=== PATIENT | female | born 1995 | race Hispanic/Latino ===

== ENCOUNTER 2018-11-15 06:02 | Outpatient (CLI) | payer MEDICAID ==
[2018-11-15] MEDS ORDERED: LACTATED RINGERS 500 ML IV ONE ×2 (06:12→08:00)
[2018-11-15] MEDS ORDERED: LACTATED RINGERS 1,000 ML ONE (06:46)
[2018-11-15] MEDS ORDERED: BRETHINE ONE (07:14)
[2018-11-15 07:19] LABS: Bacteria,Urine 1+ /HPF (Negative); Bilirubin,Urine NEG (Negative); Blood,Urine NEG (Negative); Color,Urine Yellow (Yellow); Mucus,Urine FEW /HPF; Protein,Urine <15 mg/dL mg/dL (Negative); Urobilinogen,Urine < 2.0 mg/dL (<2.0)
[2018-11-15 08:27] VITALS: BP 91/54
[2018-11-15] MEDS ORDERED: ZOFRAN IV ONE (08:30)
[2018-11-15] MEDS ORDERED: BRETHINE SUB-Q SCH (08:30)
== END 2018-11-15 10:03 | disposition home or self-care (01) ==
LOC: TRG 06:02
PROVIDERS: ATTEND Obstetrics & Gynecology
DX: O62.9 Abnormality of forces of labor, unspecified (principal); Z3A.33 33 weeks gestation of pregnancy
CPT/HCPCS: 59025; 81001; 96365; 96372; J2405; J3105; J7120; 96360; 96361; 96374; 96375

== ENCOUNTER 2018-12-17 02:24 | Outpatient (CLI) | payer MEDICAID ==
[2018-12-17 03:53] VITALS: BP 102/60
[2018-12-17] MEDS ORDERED: LACTATED RINGERS 1,000 ML IV ONE (03:54)
--- NOTE | 2018-12-17 06:43 | Event Note ---
Date: 12/17/18 Triage Note 12/17/18: 23 year old presents to L&D triage to rule out labor at 38 weeks, 3 days gestation. Patient reports active movement. Pt. denies LOF or vaginal bleeding. NST reactive. Contractions every 2-3 minutes. Cervix closed and thick. Patient was hydrated and observed. No cervical change. Contractions did not totally resolve and offered to keep patient longer and to recheck in several hours. Patient refused to stay, stating she wanted to go home. Patient not in active labor. Patient was discharged home with discussion of labor signs and warning signs. Follow up at [facility] as scheduled.
== END 2018-12-17 04:17 | disposition home or self-care (01) ==
LOC: TRG 02:24
PROVIDERS: ATTEND Obstetrics & Gynecology
DX: O47.1 False labor at or after 37 completed weeks of gestation (principal); Z3A.38 38 weeks gestation of pregnancy
CPT/HCPCS: 59025

== ENCOUNTER 2019-02-02 15:40 | Inpatient (IN) | payer MEDICAID ==
[2019-02-02] MEDS ORDERED: TYLENOL PO ONE (15:51)
[2019-02-02] MEDS ORDERED: GENTAMICIN 120 MG in NACL 0.9% 100 ML IV STA (16:23)
[2019-02-02] MEDS ORDERED: CLEOCIN 900 MG/50 mL 900 MG/50 ML BAG IV ONE (16:23)
[2019-02-02] MEDS ORDERED: NACL 0.9% 1000 ML 2,000 ML IV ONE (16:23)
[2019-02-02] MEDS ORDERED: NACL 0.9% 1000 ML 1,000 ML IV ONE (16:23)
--- NOTE | 2019-02-02 16:25 | Emergency Department Report ---
ED General Adult HPI - General Chief complaint: Fever Stated complaint: FEVER Time Seen by Provider: 02/02/19 16:15 Source: patient, RN notes reviewed, old records reviewed Mode of arrival: Ambulatory Limitations: No Limitations - History of Present Illness Initial comments: [employer] physician: Dr Duncan This is a 23-year-old female, not known to this provider previously. She does not have a primary care doctor, and she follows with the aforementioned obstetrics group. Patient had a section this hospital approximately one month ago. Pres ents to the emergency room today with complaint of fever, temperature max 102.5 at home, alternating chills, and hot flashes. Has no headache, neck pain, chest pain, upper abdominal pain, irritative urinary symptoms. Endorses sensation of incomplete voiding. No saddle anesthesia. No fecal incontinence. Also has nontraumatic lower back pain, which does not radiate anywhere. -: Gradual, hour(s) Location: back Radiation: non-radiation Severity scale (0 -10): 7 Quality: aching Consistency: intermittent Improves with: rest Worsens with: movement - Related Data Previous Rx's Medication Instructions Recorded Last Taken Type Ibuprofen [Motrin] 800 mg PO Q8HR PRN #30 tablet 01/03/19 Unknown Rx oxyCODONE /ACETAMINOPHEN [Percocet 1 tab PO Q4HR #20 tab 01/03/19 Unknown Rx 5/325] Allergies Allergy/AdvReac Type Severity Reaction Status Date / Time Sulfa (Sulfonamide Allergy Intermediate Hives Verified 02/02/19 15:42 Antibiotics) ED Review of Systems ROS: Stated complaint: FEVER Other details as noted in HPI Constitutional: chills, fever, malaise, weakness Eyes: denies: eye discharge ENT: denies: epistaxis Respiratory: denies: cough Cardiovascular: denies: chest pain Gastrointestinal: denies: nausea, vomiting, diarrhea Genitourinary: denies: dysuria, frequency Musculoskeletal: back pain, arthralgia, myalgia Skin: denies: lesions Neurological: weakness. denies: headache Psychiatric: anxiety Hematological/Lymphatic: denies: easy bleeding ED Past Medical Hx - Past Medical History Hx Hypertension: No Hx Congestive Heart Failure: No Hx Diabetes: No Hx Deep Vein Thrombosis: No Hx Renal Disease: No Hx Sickle Cell Disease: No Hx Seizures: No Hx Asthma: No Hx COPD: No Hx HIV: No - Social History Smoking Status: Never Smoker Substance Use Type: None - Medications Home Medications: Home Medications Medication Instructions Recorded Confirmed Last Taken Type Ibuprofen [Motrin] 800 mg PO Q8HR PRN #30 tablet 01/03/19 Unknown Rx oxyCODONE /ACETAMINOPHEN [Percocet 1 tab PO Q4HR #20 tab 01/03/19 Unknown Rx 5/325] ED Physical Exam - General Limitations: No Limitations, Other (chaperoned by ER wedger Eduarda) General appearance: alert, in no apparent distress - Head Head exam: Present: atraumatic, normocephalic - Eye Eye exam: Present: normal appearance, EOMI. Absent: nystagmus - ENT ENT exam: Present: normal exam, normal orophraynx, mucous membranes moist, normal external ear exam - Neck Neck exam: Present: normal inspection, full ROM. Absent: tenderness, meningismus - Respiratory Respiratory exam: Present: normal lung sounds bilaterally. Absent: respiratory distress - Cardiovascular Cardiovascular Exam: Present: normal rhythm, tachycardia, normal heart sounds. Absent: systolic murmur, diastolic murmur, rubs, gallop - GI/Abdominal GI/Abdominal exam: Present: soft, tenderness, other ( section scar with no redness, pus or streaking. Minimal lower abdominal tenderness without rebound, guarding or peritoneal sign.). Absent: distended, guarding, rebound, rigid, pulsatile mass - Extremities Exam Extremities exam: Present: normal inspection, full ROM, other (2+ pulses noted in the bilateral upper, lower extremities. Compartments soft. No long bony tenderness. The pelvis is stable.). Absent: pedal edema, joint swelling, calf tenderness - Back Exam Back exam: Present: normal inspection, full ROM. Absent: tenderness, CVA tenderness (R), CVA tenderness (L), paraspinal tenderness, vertebral tenderness - Neurological Exam Neurological exam: Present: alert, normal gait, other (Extraocular movements intact. Tongue midline. No facial droop. Facial sensation intact to light touch in the V1, V2, V3 distribution bilaterally. 5 and 5 strength in 4 extremities.. Sensation is intact to light touch in 4 extremities.). Absent: motor sensory deficit - Psychiatric Psychiatric exam: Present: normal affect, normal mood - Skin Skin exam: Present: warm, dry, intact, normal color. Absent: rash ED Course Vital Signs 02/02/19 02/02/19 02/02/19 15:42 16:48 17:00 Temperature 100.1 F H Pulse Rate 137 H 80 Respiratory 18 14 Rate Blood Pressure Blood Pressure 118/77 [Left] O2 Sat by Pulse 96 98 99 Oximetry 02/02/19 02/02/19 02/02/19 17:16 17:30 18:20 Temperature Pulse Rate 76 86 Respiratory 18 13 13 Rate Blood Pressure Blood Pressure [Left] O2 Sat by Pulse 99 99 Oximetry 02/02/19 02/02/19 02/02/19 18:30 18:45 18:46 Temperature 98.8 F Pulse Rate 65 65 Respiratory 16 16 20 Rate Blood Pressure 93/43 102/47 Blood Pressure [Left] O2 Sat by Pulse 100 100 100 Oximetry 02/02/19 02/02/19 02/02/19 19:00 19:16 19:30 Temperature Pulse Rate 63 65 67 Respiratory 18 11 L 12 Rate Blood Pressure 102/47 97/56 95/56 Blood Pressure [Left] O2 Sat by Pulse 100 100 100 Oximetry - Reevaluation(s) Reevaluation #1: 02/02/19 17:47 Differential diagnosis, including but not limited to: Bacteremia, viremia, postoperative infection Assessment and plan: 23-year-old female with complaint of fever, chills, my algias, tachycardic initially, leukocytosis of 15,000, suggestive of invasive bacterial infection. Tachycardia is improved. Appropriate broad-spectrum antibiotic therapy has been ordered. CT scan of the abdomen and pelvis is ordered. X-ray of the chest is clear and unremarkable. There is no midline spinal tenderness, there is no lower extremity weakness or numbness, epidural abscess, epidural compression is unlikely. Discussed with gynecology on-call, Dr. Toledo, covering for patient's private therapy director, and his group will admit the patient. Reevaluation #2: 02/02/19 17:50 Discussed plan of care for admission, administration of antibiotics, and acquisition of CT scan with patient and family member. Instructed patient to not breast feed for the next 24 hours. She verbalizes understanding. Patient and family amenable to hospitalization. Reevaluation #3: 02/02/19 18:46 CT scan of the abdomen and pelvis suggests no discrete abscess. Nonspecific endometrial findings noted. We will defer to gynecology to further evaluate. ED Medical Decision Making - Lab Data Result diagrams: 02/02/19 15:55 02/02/19 15:55 Vital Signs 02/02/19 15:42 Temperature 100.1 F H Pulse Rate 137 H Respiratory 18 Rate Blood Pressure 118/77 [Left] O2 Sat by Pulse 96 Oximetry Lab Results 02/02/19 02/02/19 02/02/19 Range/Units 15:55 15:55 15:55 WBC 15.3 H (4.5-11.0) K/mm3 RBC 4.09 (3.65-5.03) M/mm3 Hgb 11.6 (10.1-14.3) gm/dl Hct 34.1 (30.3-42.9) % MCV 84 (79-97) fl MCH 28 (28-32) pg MCHC 34 (30-34) % RDW 13.6 (13.2-15.2) % Plt Count 396 (140-440) K/mm3 Lymph % (Auto) 5.6 L (13.4-35.0) % [place] % (Auto) 9.3 H (0.0-7.3) % Eos % (Auto) 0.0 (0.0-4.3) % Baso % (Auto) 0.3 (0.0-1.8) % Lymph # 0.9 L (1.2-5.4) K/mm3 [place] # 1.4 H (0.0-0.8) K/mm3 Eos # 0.0 (0.0-0.4) K/mm3 Baso # 0.0 (0.0-0.1) K/mm3 Seg Neutrophils % 84.8 H (40.0-70.0) % Seg Neutrophils # 13.0 H (1.8-7.7) K/mm3 PT 13.5 (12.2-14.9) Sec. INR 1.06 (0.87-1.13) VBG pH (7.320-7.420) Sodium 140 (137-145) mmol/L Potassium 3.5 L (3.6-5.0) mmol/L Chloride 103.5 (98-107) mmol/L Carbon Dioxide 21 L (22-30) mmol/L Anion Gap 19 mmol/L BUN 18 H (7-17) mg/dL Creatinine 0.8 (0.7-1.2) mg/dL Estimated GFR > 60 ml/min BUN/Creatinine Ratio 23 % Glucose 107 H (65-100) mg/dL Lactic Acid (0.7-2.0) mmol/L Calcium 9.9 (8.4-10.2) mg/dL Magnesium (1.7-2.3) mg/dL Total Bilirubin 0.30 (0.1-1.2) mg/dL AST 19 (5-40) units/L ALT 17 (7-56) units/L Alkaline Phosphatase 94 (35-129) units/L Total Creatine Kinase (30-135) units/L Total Protein 7.5 (6.3-8.2) g/dL Albumin 4.2 (3.9-5) g/dL Albumin/Globulin Ratio 1.3 % Urine Color (Yellow) Urine Turbidity (Clear) Urine pH (5.0-7.0) Ur Specific [place] (1.003-1.030) Urine Protein (Negative) mg/dL Urine Glucose (UA) (Negative) mg/dL Urine Ketones (Negative) mg/dL Urine Blood (Negative) Urine Nitrite (Negative) Urine Bilirubin (Negative) Urine Urobilinogen (<2.0) mg/dL Ur Leukocyte Esterase (Negative) Urine WBC (Auto) (0.0-6.0) /HPF Urine RBC (Auto) (0.0-6.0) /HPF U Epithel Cells (Auto) (0-13.0) /HPF Urine Mucus /HPF 02/02/19 02/02/19 02/02/19 Range/Units 15:55 15:55 16:08 WBC (4.5-11.0) K/mm3 RBC (3.65-5.03) M/mm3 Hgb (10.1-14.3) gm/dl Hct (30.3-42.9) % MCV (79-97) fl MCH (28-32) pg MCHC (30-34) % RDW (13.2-15.2) % Plt Count (140-440) K/mm3 Lymph % (Auto) (13.4-35.0) % [place] % (Auto) (0.0-7.3) % Eos % (Auto) (0.0-4.3) % Baso % (Auto) (0.0-1.8) % Lymph # (1.2-5.4) K/mm3 [place] # (0.0-0.8) K/mm3 Eos # (0.0-0.4) K/mm3 Baso # (0.0-0.1) K/mm3 Seg Neutrophils % (40.0-70.0) % Seg Neutrophils # (1.8-7.7) K/mm3 PT (12.2-14.9) Sec. INR (0.87-1.13) VBG pH 7.430 H (7.320-7.420) Sodium (137-145) mmol/L Potassium (3.6-5.0) mmol/L Chloride (98-107) mmol/L Carbon Dioxide (22-30) mmol/L Anion Gap mmol/L BUN (7-17) mg/dL Creatinine (0.7-1.2) mg/dL Estimated GFR ml/min BUN/Creatinine Ratio % Glucose (65-100) mg/dL Lactic Acid 1.00 (0.7-2.0) mmol/L Calcium (8.4-10.2) mg/dL Magnesium (1.7-2.3) mg/dL Total Bilirubin (0.1-1.2) mg/dL AST (5-40) units/L ALT (7-56) units/L Alkaline Phosphatase (35-129) units/L Total Creatine Kinase (30-135) units/L Total Protein (6.3-8.2) g/dL Albumin (3.9-5) g/dL Albumin/Globulin Ratio % Urine Color Yellow (Yellow) Urine Turbidity Cloudy (Clear) Urine pH 6.0 (5.0-7.0) Ur Specific [place] 1.014 (1.003-1.030) Urine Protein 30 mg/dl (Negative) mg/dL Urine Glucose (UA) Neg (Negative) mg/dL Urine Ketones Neg (Negative) mg/dL Urine Blood Sm (Negative) Urine Nitrite Neg (Negative) Urine Bilirubin Neg (Negative) Urine Urobilinogen < 2.0 (<2.0) mg/dL Ur Leukocyte Esterase Lg (Negative) Urine WBC (Auto) > 182.0 H (0.0-6.0) /HPF Urine RBC (Auto) 15.0 (0.0-6.0) /HPF U Epithel Cells (Auto) 3.0 (0-13.0) /HPF Urine Mucus Few /HPF 02/02/19 Range/Units 16:20 WBC (4.5-11.0) K/mm3 RBC (3.65-5.03) M/mm3 Hgb (10.1-14.3) gm/dl Hct (30.3-42.9) % MCV (79-97) fl MCH (28-32) pg MCHC (30-34) % RDW (13.2-15.2) % Plt Count (140-440) K/mm3 Lymph % (Auto) (13.4-35.0) % [place] % (Auto) (0.0-7.3) % Eos % (Auto) (0.0-4.3) % Baso % (Auto) (0.0-1.8) % Lymph # (1.2-5.4) K/mm3 [place] # (0.0-0.8) K/mm3 Eos # (0.0-0.4) K/mm3 Baso # (0.0-0.1) K/mm3 Seg Neutrophils % (40.0-70.0) % Seg Neutrophils # (1.8-7.7) K/mm3 PT (12.2-14.9) Sec. INR (0.87-1.13) VBG pH (7.320-7.420) Sodium (137-145) mmol/L Potassium (3.6-5.0) mmol/L Chloride (98-107) mmol/L Carbon Dioxide (22-30) mmol/L Anion Gap mmol/L BUN (7-17) mg/dL Creatinine (0.7-1.2) mg/dL Estimated GFR ml/min BUN/Creatinine Ratio % Glucose (65-100) mg/dL Lactic Acid (0.7-2.0) mmol/L Calcium (8.4-10.2) mg/dL Magnesium 1.80 (1.7-2.3) mg/dL Total Bilirubin (0.1-1.2) mg/dL AST (5-40) units/L ALT (7-56) units/L Alkaline Phosphatase (35-129) units/L Total Creatine Kinase 39 (30-135) units/L Total Protein (6.3-8.2) g/dL Albumin (3.9-5) g/dL Albumin/Globulin Ratio % Urine Color (Yellow) Urine Turbidity (Clear) Urine pH (5.0-7.0) Ur Specific [place] (1.003-1.030) Urine Protein (Negative) mg/dL Urine Glucose (UA) (Negative) mg/dL Urine Ketones (Negative) mg/dL Urine Blood (Negative) Urine Nitrite (Negative) Urine Bilirubin (Negative) Urine Urobilinogen (<2.0) mg/dL Ur Leukocyte Esterase (Negative) Urine WBC (Auto) (0.0-6.0) /HPF Urine RBC (Auto) (0.0-6.0) /HPF U Epithel Cells (Auto) (0-13.0) /HPF Urine Mucus /HPF - EKG Data -: EKG Interpreted by Me EKG shows normal: sinus rhythm Rate: normal - EKG Data When compared to previous EKG there are: previous EKG unavailable 02/02/19 17:48 This is a normal sinus rhythm, 90 bpm, left axis deviation, left anterior fascicular block, atrial enlargement, motion artifact, rate 90 bpm, abnormal EKG, no endorsement of chest pain, this EKG is not consistent with ST elevation myocardial infarction. - Radiology Data Radiology results: report reviewed, image reviewed X-ray of the chest is negative for acute disease. CT scan of the abdomen pelvis interpretation is pending at this time. Critical care attestation.: If time is entered above; I have spent that time in minutes in the direct care of this critically ill patient, excluding procedure time. ED Disposition Clinical Impression: Postoperative fever Sepsis Qualifiers: Sepsis type: sepsis due to unspecified organism Qualified Code(s): A41.9 - Sepsis, unspecified organism Disposition: OP ADMIT IP TO THIS HOSP Is pt being admited?: Yes Condition: Serious
[2019-02-02 16:26] LABS: Basophils % (Auto) 0.3 % (0.0-1.8); Hematocrit 34.1 % (30.3-42.9); Hemoglobin 11.6 gm/dl (10.1-14.3); Lymphocytes # (Auto) 0.9 K/mm3 (1.2-5.4); Lymphocytes % (Auto) 5.6 % (13.4-35.0); Mean Corpuscular HGB Conc 34 % (30-34); Mean Corpuscular Volume 84 fl (79-97); Monocytes # (Auto) 1.4 K/mm3 (0.0-0.8); Monocytes % (Auto) 9.3 % (0.0-7.3); Platelet Count 396 K/mm3 (140-440); Red Blood Count 4.09 M/mm3 (3.65-5.03); Red Cell Distribution Width 13.6 % (13.2-15.2)
[2019-02-02 16:36] LABS: INR 1.06 (0.87-1.13)
[2019-02-02 16:37] LABS: Alanine Aminotransferase 17 units/L (7-56); Albumin 4.2 g/dL (3.9-5); BUN/Creatinine Ratio 23; Blood Urea Nitrogen 18 mg/dL (7-17); Calcium 9.9 mg/dL (8.4-10.2); Hemolysis Index 0
--- NOTE | 2019-02-02 16:50 | XRay Report ---
PROCEDURE: XR CHEST 1V AP TECHNIQUE: Chest radiograph single view. HISTORY: possible Sepsis COMPARISONS: None . FINDINGS: Heart: Normal. Mediastinum/Vessels: Normal. Lungs/Pleural space: Normal. Bony thorax: No acute osseous abnormality. Life support devices: None. IMPRESSION: No acute cardiopulmonary abnormality. This document is electronically signed by Oliver Rangel MD., February 02 2019 04:48:41 PM ET
[2019-02-02] MEDS: NACL 0.9% 500 ML 500 ML IV ONE ×2 (16:58→20:16)
[2019-02-02] MEDS ORDERED: GENTAMICIN/NS 120MG/100ML 120 MG/100 ML BAG IV ONE (17:00)
[2019-02-02] MEDS ORDERED: AMPICILLIN/NS 2 GM/100 ML 2 GM/100 ML BAG IV ONE (17:00)
[2019-02-02 17:23] LABS: Bilirubin,Urine NEG (Negative); Blood,Urine SM (Negative); Color,Urine Yellow (Yellow); Mucus,Urine FEW /HPF; Urobilinogen,Urine < 2.0 mg/dL (<2.0)
[2019-02-02 17:24] LABS: WBC,Urine > 182.0 /HPF (0.0-6.0)
--- NOTE | 2019-02-02 18:33 | Cat Scan Report ---
PROCEDURE: CT ABDOMEN PELVIS W CON TECHNIQUE: Computerized axial tomography of the abdomen and pelvis was performed after the IV inject ion of iodinated nonionic contrast. CT DOSE LENGTH PRODUCT: 889.1 mGycm HISTORY: post op sepsis, ? Retained POC COMPARISONS: None . FINDINGS: No acute lung base finding. No acute fracture. Normal-appearing liver, adrenals, pancreas, and spleen . Intact normal caliber abdominal aorta and IVC. Gallbladder is contracted. Contains a single calcified small stone. Slight gallbladder wall thickenin g may be secondary to contracted state. No pericholecystic fluid. Normal-appearing kidneys. Nonspecific slight bilateral hydronephrosis may be residual from since there is no evidence of ureteral calculus. The distal ureters are partly obscured by adjacent s tructures. Intact abdominal wall without evidence of hernia. Slight fat stranding transversely across the pelvic anterior abdominal wall may be postoperative change. No abnormal fluid collection in the abdominal w all. No retroperitoneal adenopathy. No evidence of mesenteric mass. Normal-appearing stomach and duodenum. No small bowel distention in the abdomen and pelvis. Nonspecific slight pelvic free fluid may be reactive and/or postoperative. Normal-appearing urinary bladder, adnexa, and rectum. Nonspecific slight fluid noted in the endometri al cavity. No evidence of mass or abnormal IV contrast enhancement in the region of the uterine cavit y to suggest CT evidence of retained products of conception. No evidence of uterine mass. No abnormal well-defined fluid collection with air bubbles to suggest abscess. Normal-appearing rectu m and sigmoid colon. Normal-appearing cecum, terminal ileum, and appendix. IMPRESSION: Nonspecific slight free fluid in the endometrial cavity may be clearly or hemorrhagic. Differential i ncludes endometritis. No mass or enhancing abnormality in the uterine cavity to suggest CT evidence o f retained products of conception Slight pelvic free fluid may be reactive and/or postoperative Single small calcified gallstone in contracted gallbladder lumen Slight bilateral hydronephrosis may be residual from since there is no evidence of ureteral calculus This document is electronically signed by Gilbert Arreguin MD., February 02 2019 06:31:40 PM ET
--- NOTE | 2019-02-02 20:32 | History and Physical Report ---
History of Present Illness Date of examination: 02/02/19 Date of admission: 02/02/19 17:49 Chief complaint: Fever and chills History of present illness: 23 year old female presented to hospital today with complaint of fever and chills. Patient is 1 month post-op; had primary low transverse section on 01/02/19 and had uneventful stay other than anemia for which she received oral iron supplementation. Patient states she developed a fever of 101 degrees today at around 11:00 AM. She states she also began experiencing chills, malaise and extreme fatigue at that time. She reports body aches. Patient denies any sick contacts. She denies exposure to flu. She reports a recent history of syphilis (latent) which was treated late last year. She denies skin rash, cough, shortness of breath, chest pain, wheezing, foul smelling vaginal discharge, heavy vaginal bleeding, dysuria, urinary frequency, abdominal pain, leg pain, dizziness, or headache. She reports nausea but no vomiting this morning for which she took a Zofran pill; states nausea has now resolved. Alternating diarrhea and constipation for the past few weeks but normal BM this morning. Reports feeling of suprapubic pressure and feeling of constantly needing to void, lower back pain, and left flank pain for past few days. She denies incisional pain. Patient denies depression. She states she is not taking any regular medications at home. She reports a sulfa allergy. Past History Past Medical History: other (recently treated for latent syphilis (states she was treated 07/2018)) Past Surgical History: section (one month ago), other (wisdom teeth extraction) CV RN History: syphilis. denies: abnormal PAP smear, chlamydia, gonorrhea, hepatitis B, hepatitis C, herpes, HIV Family/Genetic History: none Social history: lives with family, full code. denies: smoking, alcohol abuse, prescription drug abuse, IV drug use Medications and Allergies Allergies Allergy/AdvReac Type Severity Reaction Status Date / Time Sulfa (Sulfonamide Allergy Intermediate Hives Verified 02/02/19 15:42 Antibiotics) Home Medications Medication Instructions Recorded Confirmed Last Taken Type Ibuprofen [Motrin] 800 mg PO Q8HR PRN #30 tablet 01/03/19 Unknown Rx oxyCODONE /ACETAMINOPHEN [Percocet 1 tab PO Q4HR #20 tab 01/03/19 Unknown Rx 5/325] Review of Systems Constitutional: fever, chills, fatigue, other (body aches), no weakness, no lethargy Ears, nose, mouth and throat: no ear pain, no nasal discharge, no sore throat Cardiovascular: other (patient reports intermittent feeling that her heart is pounding), no chest pain, no syncope, no lightheadedness, no shortness of breath, no phlebitis Respiratory: no cough, no shortness of breath, no congestion, no wheezing Gastrointestinal: nausea, diarrhea, constipation, no abdominal pain, no vomiting Genitourinary: other (reports scant light brown lochia), no pelvic pain Musculoskeletal: myalgias, other (reports body aches) Integumentary: no rash, no pruritis Neurological: no syncope, no headaches Psychiatric: no anxiety, no depression Endocrine: fatigue, no palpatations Allergic/Immunologic: no wheezing - Vital Signs Vital signs: Vital Signs Temp Pulse Resp BP Pulse Ox 100.1 F H 137 H 18 118/77 96 02/02/19 15:42 02/02/19 15:42 02/02/19 15:42 02/02/19 15:42 02/02/19 15:42 Temp Pulse Resp BP Pulse Ox 98.8 F 67 12 95/56 100 02/02/19 18:45 02/02/19 19:30 02/02/19 19:30 02/02/19 19:30 02/02/19 19:30 Urine showed 182 WBC per HPF. CXR negative. CT of abdomen and pelvis showed small amount of free fluid in endometrial cavity and single calcified small stone in gallbladder. - Physical Exam Cardiovascular: Regular rate, Normal S1, Normal S2, Other (murmur heard) Lungs: Positive: Clear to auscultation Abdomen: Positive: normal appearance, soft, tenderness (tenderness between umbi licus and S.P. upon palpation; no tenderness directly on incision; + left CVAT), normal bowel sounds. Negative: distention, guarding Uterus: Negative: tender Results Result Diagrams: 02/02/19 15:55 02/02/19 15:55 Abnormal lab results 02/02/19 02/02/19 02/02/19 Range/Units 15:55 15:55 15:55 WBC 15.3 H (4.5-11.0) K/mm3 Lymph % (Auto) 5.6 L (13.4-35.0) % [place] % (Auto) 9.3 H (0.0-7.3) % Lymph # 0.9 L (1.2-5.4) K/mm3 [place] # 1.4 H (0.0-0.8) K/mm3 Seg Neutrophils % 84.8 H (40.0-70.0) % Seg Neutrophils # 13.0 H (1.8-7.7) K/mm3 VBG pH 7.430 H (7.320-7.420) Potassium 3.5 L (3.6-5.0) mmol/L Carbon Dioxide 21 L (22-30) mmol/L BUN 18 H (7-17) mg/dL Glucose 107 H (65-100) mg/dL Lactic Acid (0.7-2.0) mmol/L Urine WBC (Auto) (0.0-6.0) /HPF 02/02/19 02/02/19 Range/Units 16:08 19:24 WBC (4.5-11.0) K/mm3 Lymph % (Auto) (13.4-35.0) % [place] % (Auto) (0.0-7.3) % Lymph # (1.2-5.4) K/mm3 [place] # (0.0-0.8) K/mm3 Seg Neutrophils % (40.0-70.0) % Seg Neutrophils # (1.8-7.7) K/mm3 VBG pH (7.320-7.420) Potassium (3.6-5.0) mmol/L Carbon Dioxide (22-30) mmol/L BUN (7-17) mg/dL Glucose (65-100) mg/dL Lactic Acid 0.60 L (0.7-2.0) mmol/L Urine WBC (Auto) > 182.0 H (0.0-6.0) /HPF All other labs normal. Assessment and Plan A: Fever and chills 1 month post LTCS. Leukocytosis. Probable UTI/left kidney infection. endometritis. Recent latent syphilis, treated. Sulfa allergy. Heart murmur. P: Admit. Blood cultures, urine culture. IV hydration. IV antibiotics (Gentamicin, Ampicillin, and Clindamycin); Dr. Seth orders to continue triple antibiotics until seen by ID. Infectious disease consult (consult put in and patient's nurse and charge nurse informed to notify ID MD of consult). Urology consult and cardiology consult (consults put in and patient's nurse and charge nurse informed to notify urology and cardiology of MD consult). Repeat CBC and CMP tomorrow. Vital sign monitoring. Consulted Dr. Seth regarding this patient and informed him of patient's symptoms, results of labs, results of CXR and abdominal/pelvic CT, patient's vital signs, and interventions taken/ordered. Dr. Seth states no pelvic US needed; he states to obtain ID, urology, and cardiology consults and to continue patient on Ampicillin, Gentamicin, and Clindamycin IV. Patient and nurse and charge nurse notified of Dr. Seth's orders. RN and charge nurse state they will notify ID, cardiology, and urology of consults.
[2019-02-02] MEDS ORDERED: LACTATED RINGERS 1,000 ML IV SCH (22:00)
[2019-02-03] MEDS: AMPICILLIN/NS 2 GM/100 ML 2 GM/100 ML BAG IV SCH ×3 (00:38→13:16)
[2019-02-03] MEDS ORDERED: TYLENOL PO ONE (01:10)
[2019-02-03] MEDS: CLEOCIN 900 MG/50 mL 900 MG/50 ML BAG IV SCH ×2 (02:11→11:03)
[2019-02-03] MEDS: GENTAMICIN/NS 80 MG/100 ML 100 ML IV SCH ×2 (04:04→12:28)
--- NOTE | 2019-02-03 04:06 | Progress Note ---
Assessment and Plan A: Fever and chills 1 month post LTCS. Leukocytosis. Probable UTI/left kidney infection. endometritis. Recent latent syphilis, treated. Sulfa allergy. Heart murmur. P: Admit. Blood cultures, urine culture. IV hydration. IV antibiotics (Gentamicin, Ampicillin, and Clindamycin); Dr. Seth orders to continue triple antibiotics until seen by ID. Infectious disease consult (consult put in and patient's nurse and charge nurse informed to notify ID MD of consult). Urology consult and cardiology consult (consults put in and patient's nurse and charge nurse informed to notify urology and cardiology of MD consult). Repeat CBC and CMP tomorrow. Vital sign monitoring. Patient is of small frame and was not in any distress; and vital signs not inconsistent with with such habitus. Work up, observation and rx for PUO will continue on the floor. ICU placement was considered but at this time patient's physical status suggests otherwise. - Patient Problems (1) PUO (pyrexia of unknown origin) Current Visit: Yes Status: Acute Subjective Date of service: 02/03/19 Principal diagnosis: Pyrexia of unknown origin. Interval history: 23 year old female presented to hospital today with complaint of fever and chills. Patient is 1 month post-op; had primary low transverse section on 01/02/19 and had uneventful stay other than anemia for which she received oral iron supplementation. Patient states she developed a fever of 101 degrees today at around 11:00 AM. She states she also began experiencing chills, malaise and extreme fatigue at that time. She reports body aches. Patient denies any sick contacts. She denies exposure to flu. She reports a recent history of syphilis (latent) which was treated late last year. She denies skin rash, cough, shortness of breath, chest pain, wheezing, foul smelling vaginal discharge, heavy vaginal bleeding, dysuria, urinary frequency, abdominal pain, leg pain, dizziness, or headache. She reports nausea but no vomiting this morning for which she took a Zofran pill; states nausea has now resolved. Alternating diarrhea and constipation for the past few weeks but normal BM this morning. Reports feeling of suprapubic pressure and feeling of constantly needing to void, lower back pain, and left flank pain for past few days. She denies incisional pain. Patient denies depression. She states she is not taking any regular medications at home. She reports a sulfa allergy. Saw patient this morning to reconcile reported vital signs and physical state of patient. Objective - Constitutional Vitals: Vital Signs - 12hr 02/02/19 02/02/19 02/02/19 16:48 17:00 17:16 Temperature Pulse Rate 80 76 Respiratory 14 18 Rate Blood Pressure O2 Sat by Pulse 98 99 99 Oximetry 02/02/19 02/02/19 02/02/19 17:30 18:20 18:30 Temperature Pulse Rate 86 65 Respiratory 13 13 16 Rate Blood Pressure 93/43 O2 Sat by Pulse 99 100 Oximetry 02/02/19 02/02/19 02/02/19 18:45 18:46 19:00 Temperature 98.8 F Pulse Rate 65 63 Respiratory 16 20 18 Rate Blood Pressure 102/47 102/47 O2 Sat by Pulse 100 100 100 Oximetry 02/02/19 02/02/19 02/02/19 19:16 19:30 21:25 Temperature Pulse Rate 65 67 Respiratory 11 L 12 Rate Blood Pressure 97/56 95/56 97/56 O2 Sat by Pulse 100 100 89 Oximetry 02/02/19 02/02/19 02/02/19 21:30 23:09 23:25 Temperature 99.7 F H 99.7 F H Pulse Rate 122 H 120 H Respiratory 30 H Rate Blood Pressure 97/56 106/54 O2 Sat by Pulse 97 98 Oximetry 02/03/19 02/03/19 02/03/19 00:10 02:06 02:08 Temperature 99.5 F 98.5 F Pulse Rate 97 H 80 82 Respiratory 24 24 Rate Blood Pressure 97/48 83/48 O2 Sat by Pulse 98 97 98 Oximetry General appearance: Present: no acute distress, well-nourished - EENT Eyes: PERRL ENT: hearing intact Ears: bilateral: normal - Neck Neck: supple, normal ROM - Respiratory Respiratory effort: normal Respiratory: bilateral: CTA - Breasts Breasts: deferred - Cardiovascular Rhythm: regular Extremities: no ischemia, pulses intact, pulses symmetrical, normal temperature, Full ROM - Gastrointestinal General gastrointestinal: Present: soft, non-tender, non-distended, normal bowel sounds Rectal Exam: deferred - Genitourinary Female genitourinary: deferred - Integumentary Integumentary: clear, warm, dry, normal turgor, no jaundice, no rash, no clammy, no pale - Musculoskeletal Musculoskeletal: 1, strength equal bilaterally - Psychiatric Psychiatric: appropriate mood/affect, intact judgment & insight, cooperative - Labs CBC & Chem 7: 02/02/19 15:55 02/02/19 15:55 Labs: Abnormal lab results 02/02/19 02/02/19 02/02/19 Range/Units 15:55 15:55 15:55 WBC 15.3 H (4.5-11.0) K/mm3 Lymph % (Auto) 5.6 L (13.4-35.0) % [place] % (Auto) 9.3 H (0.0-7.3) % Lymph # 0.9 L (1.2-5.4) K/mm3 [place] # 1.4 H (0.0-0.8) K/mm3 Seg Neutrophils % 84.8 H (40.0-70.0) % Seg Neutrophils # 13.0 H (1.8-7.7) K/mm3 VBG pH 7.430 H (7.320-7.420) Potassium 3.5 L (3.6-5.0) mmol/L Carbon Dioxide 21 L (22-30) mmol/L BUN 18 H (7-17) mg/dL Glucose 107 H (65-100) mg/dL Lactic Acid (0.7-2.0) mmol/L Urine WBC (Auto) (0.0-6.0) /HPF 02/02/19 02/02/19 Range/Units 16:08 19:24 WBC (4.5-11.0) K/mm3 Lymph % (Auto) (13.4-35.0) % [place] % (Auto) (0.0-7.3) % Lymph # (1.2-5.4) K/mm3 [place] # (0.0-0.8) K/mm3 Seg Neutrophils % (40.0-70.0) % Seg Neutrophils # (1.8-7.7) K/mm3 VBG pH (7.320-7.420) Potassium (3.6-5.0) mmol/L Carbon Dioxide (22-30) mmol/L BUN (7-17) mg/dL Glucose (65-100) mg/dL Lactic Acid 0.60 L (0.7-2.0) mmol/L Urine WBC (Auto) > 182.0 H (0.0-6.0) /HPF - Imaging and cardiology Chest x-ray: report reviewed CT scan - abdomen: report reviewed Medications & Allergies - Medications Allergies/Adverse Reactions: Allergies Sulfa (Sulfonamide Antibiotics) Allergy (Intermediate, Verified 02/02/19 15:42) Hives Home Medications: Home Medications Medication Instructions Recorded Confirmed Last Taken Type Ibuprofen [Motrin] 800 mg PO Q8HR PRN #30 tablet 01/03/19 Unknown Rx oxyCODONE /ACETAMINOPHEN [Percocet 1 tab PO Q4HR #20 tab 01/03/19 Unknown Rx 5/325] Active Medications: Generic Name Dose Route Start Last Admin Trade Name Freq PRN Reason Stop Dose Admin Lactated Ringer's 1,000 mls @ 125 mls/hr 02/02/19 23:00 Lactated Ringers IV DIRECT DEBBIE Clindamycin HCl 900 mg in 50 mls @ 100 mls/hr 02/03/19 01:00 02/03/19 02:11 Cleocin 900 Mg/50 Ml IV 100 mls/hr Q8H DEBBIE Administration Protocol Gentamicin Sulfate/Sodium Chloride 100 mls @ 200 mls/hr 02/03/19 04:00 Gentamicin/Ns 80 Mg/100 Ml IV Q8H DEBBIE Ampicillin Sodium 2 gm in 100 mls @ 100 mls/hr 02/03/19 00:00 02/03/19 00:38 Ampicillin/Ns 2 Gm/100 Ml IV 100 mls/hr Q6HR DEBBIE Administration Protocol
[2019-02-03] MEDS: LACTATED RINGERS 1,000 ML IV SCH ×2 (04:09→13:17)
[2019-02-03] MEDS: ZOFRAN IV PRN (08:44)
[2019-02-03] MEDS: NORCO 5/325 PO PRN ×3 (09:20→20:54)
[2019-02-03 09:41] LABS: Basophils % (Auto) 0.3 % (0.0-1.8); Eosinophils # (Auto) 0.1 K/mm3 (0.0-0.4); Eosinophils % (Auto) 0.3 % (0.0-4.3); Hematocrit 30.7 % (30.3-42.9); Hemoglobin 10.1 gm/dl (10.1-14.3); Mean Corpuscular HGB Conc 33 % (30-34); Mean Corpuscular Volume 86 fl (79-97); Platelet Count 312 K/mm3 (140-440); Red Blood Count 3.58 M/mm3 (3.65-5.03); Red Cell Distribution Width 13.5 % (13.2-15.2)
[2019-02-03 09:56] LABS: Alanine Aminotransferase 92 units/L (7-56); Albumin 3.4 g/dL (3.9-5); BUN/Creatinine Ratio 11; Blood Urea Nitrogen 9 mg/dL (7-17); Calcium 8.9 mg/dL (8.4-10.2); Hemolysis Index 5
--- NOTE | 2019-02-03 09:59 | Event Note ---
Date: 02/03/19 Saw patient briefly this morning. Left flank pain; awaiting urology, ID and cardiology consults. Receiving IV Ampicillin, Gentamicin, and Clindamycin. Ordered Aguirre for pain and IV Zofran for nausea. Patient was also seen and evaluated by this morning.
--- NOTE | 2019-02-03 11:39 | Consultation ---
History of Present Illness Consult date: 02/03/19 Requesting physician: ROBE BE Consult reason: other (Heart murmur) History of present illness: Ms. Moser is a 23 y/o female who is one month s/p transverse and a history of latent syphilis who presented to the [facility] on 02/02/2019 with fever and chills x24 hours. She also endorses lower back pain and some urinary frequency that she initially attributed to a UTI; however, she now reports those symptoms are resolved. She denies any sick contacts. She reports some nausea that is now resolved, but no vomiting, dizziness, shortness or breath or incision pain. Abdominal CT slight free fluid in the endometrial cavity and a single calcified gallstone in the gall bladder lumen. CXR showed no acute findings. She denies chest pain, but does endorse a "racing" heart on admission. Her documented hear t rate did reach the 120s overnight. Initial EKG unremarkable. Of note, patient states her blood pressures are normally "on the lower end of normal," reporting that her diastolic is typically in the 40s and 50s. We are consulted because of the fever and also because of a heart murmur that is new to the patient. Past History Past Medical History: other (latent syphilis) Past Surgical History: Social history: lives with family, full code. denies: smoking, alcohol abuse, prescription drug abuse, IV drug use Medications and Allergies Allergies Allergy/AdvReac Type Severity Reaction Status Date / Time Sulfa (Sulfonamide Allergy Intermediate Hives Verified 02/02/19 15:42 Antibiotics) Home Medications Medication Instructions Recorded Confirmed Last Taken Type Ibuprofen [Motrin] 800 mg PO Q8HR PRN #30 tablet 01/03/19 02/03/19 Unknown Rx oxyCODONE /ACETAMINOPHEN [Percocet 1 tab PO Q4HR #20 tab 01/03/19 02/03/19 Unknown Rx 5/325] Active Meds: Active Medications Acetaminophen/Hydrocodone Bitart ([place] 5/325) 1 each PO Q6H PRN PRN Reason: Pain, Moderate (4-6) Last Admin: 02/03/19 09:20 Dose: 1 each Documented by: Lactated Ringer's (Lactated Ringers) 1,000 mls @ 125 mls/hr IV DIRECT DEBBIE Last Admin: 02/03/19 04:09 Dose: 125 mls/hr Documented by: Clindamycin HCl (Cleocin 900 Mg/50 Ml) 900 mg in 50 mls @ 100 mls/hr IV Q8H DEBBIE; Protocol Last Admin: 02/03/19 11:03 Dose: 100 mls/hr Documented by: Gentamicin Sulfate/Sodium Chloride (Gentamicin/Ns 80 Mg/100 Ml) 100 mls @ 200 mls/hr IV Q8H DEBBIE Last Infusion: 02/03/19 04:31 Dose: Infused Documented by: Ampicillin Sodium (Ampicillin/Ns 2 Gm/100 Ml) 2 gm in 100 mls @ 100 mls/hr IV Q6HR DEBBIE; Protocol Last Admin: 02/03/19 07:36 Dose: 100 mls/hr Documented by: Ondansetron HCl (Zofran) 4 mg IV Q8H PRN PRN Reason: Nausea Last Admin: 02/03/19 08:44 Dose: 4 mg Documented by: Review of Systems All systems: negative Constitutional: fever, chills, other (lower back pain) Ears, nose, mouth and throat: deferred Genitourinary Female: flank pain Physical Examination Last Vital Signs Temp 100.7 F H 02/03/19 08:11 Pulse 105 H 02/03/19 08:11 Resp 38 H 02/03/19 08:11 BP 100/53 02/03/19 08:11 Pulse Ox 100 02/03/19 08:11 General appearance: no acute distress HEENT: Positive: PERRL Neck: Positive: neck supple Cardiac: Positive: Regular Rhythm, Audible Murmur Lungs: Positive: Normal Exam Neuro: Positive: Grossly Intact Abdomen: Positive: Soft Female genitourinary: deferred Skin: Positive: Clear Musculoskeletal: Normal Range of Motion Extremities: Present: normal Results 02/03/19 09:18 02/03/19 09:18 Cardiac Enzymes 02/02/19 02/03/19 Range/Units 15:55 09:18 AST 19 95 H (5-40) units/L Coagulation 02/02/19 Range/Units 15:55 PT 13.5 (12.2-14.9) Sec. INR 1.06 (0.87-1.13) CBC 02/02/19 02/03/19 Range/Units 15:55 09:18 WBC 15.3 H 16.8 H (4.5-11.0) K/mm3 RBC 4.09 3.58 L (3.65-5.03) M/mm3 Hgb 11.6 10.1 (10.1-14.3) gm/dl Hct 34.1 30.7 (30.3-42.9) % Plt Count 396 312 (140-440) K/mm3 Lymph # 0.9 L 1.0 L (1.2-5.4) K/mm3 [place] # 1.4 H 1.0 H (0.0-0.8) K/mm3 Eos # 0.0 0.1 (0.0-0.4) K/mm3 Baso # 0.0 0.0 (0.0-0.1) K/mm3 Comprehensive Metabolic Panel 02/02/19 02/03/19 Range/Units 15:55 09:18 Sodium 140 141 (137-145) mmol/L Potassium 3.5 L 3.5 L (3.6-5.0) mmol/L Chloride 103.5 107.1 H (98-107) mmol/L Carbon Dioxide 21 L 22 (22-30) mmol/L BUN 18 H 9 (7-17) mg/dL Creatinine 0.8 0.8 (0.7-1.2) mg/dL Glucose 107 H 122 H (65-100) mg/dL Calcium 9.9 8.9 (8.4-10.2) mg/dL AST 19 95 H (5-40) units/L ALT 17 92 H (7-56) units/L Alkaline Phosphatase 94 99 (35-129) units/L Total Protein 7.5 6.1 L (6.3-8.2) g/dL Albumin 4.2 3.4 L (3.9-5) g/dL - Imaging and Cardiology Echo: pending - EKG Interpretation EKG: sinus rhythm EKG interpretations - Telemetry EKG Rhythm: Sinus Rhythm Assessment and Plan Will obtain echocardiogram to evaluate for infectious process given fever and new-onset heart murmur. Will continue to monitor heart rate and blood pressure. Patient has been seen in conjunction with Dr. Valdez, who agrees with assessment and plan. - Patient Problems (1) Murmur, cardiac Current Visit: Yes Status: Acute (2) PUO (pyrexia of unknown origin) Current Visit: Yes Status: Acute (3) Postoperative fever Current Visit: Yes Status: Acute (4) Acquired syphilis Current Visit: No Status: Resolved (5) Anemia Current Visit: Yes Status: Acute (6) Anemia Current Visit: Yes Status: Acute
--- NOTE | 2019-02-03 15:58 | Consultation ---
History of Present Illness - Reason for Consult Consult date: 02/03/19 sepsis Requesting physician: ROBE BE - History of Present Illness 23 y/o female with recent C section on 01/02/2019 admitted on 02/02/2019 due to a week history of bilateral flank pain, left more than right associated with urinary hesitation and frequency. She reports she had a UTI when she was 14 y/o. Denies history of kidney stones. Reports 24 hour of fever associated with chills. She had an uneventful , only anemia for which she received oral iron supplementation. On admission, temp 100.1, HR 137, R18, BP 118/77. WBC 15.3. Hg 11.6. Plat 396. Creat 0.8. UA with 182 wbc, large LE. Blood cultures 02/02/2019 no growth today. Urine culture 02/02/[address] CXR negative. CT abdomen/pelvis shows slight bilateral hydronephrosis, small calcified gallstone and slight free fluid in the endometrial cavity. Review of Systems: General: + fever, +chills, no malaise Cutaneous: no rash, pruritus Head: no headaches or injury Eyes: no changes in vision, eye pain, double vision Ears: no ear pain, ear discharge, ringing or hearing loss Nose: no nose bleeding, stuffiness Mouth & throat: no bleeding gums, no horseness, no dental problems, or swollen glands Neck: no pain, node enlargement/lumps, tyroid enlargement or tenderness Respiratory: no cough, wheezing, sputum, hemoptysis, pleuritic chest pain Cardiovascular: no chest pain, leg edema, cyanosis, [place], orthopnea Musculoskeletal: no edema Gastrointestinal: +nausea, vomiting x 1, no hematemesis, diarrhea, constipation, melena, bright red blood in stools, fecal incontinence, jaundice Genitourinary/Reproductive: + frequent urination, dysuria, hematuria, incontinence +ga flank pain Neurogical: no seizures, no headaches, no weakness, no paresthesias, no loss of speech or vision; no memory loss, no vertigo, no tremors, no numbness Psychiatric: stable mood; no excessive anxiety, sadness or moodiness Past History Past Medical History: other (latent syphilis) Past Surgical History: Social history: lives with family, full code. denies: smoking, alcohol abuse, prescription drug abuse, IV drug use Medications and Allergies Allergies Allergy/AdvReac Type Severity Reaction Status Date / Time Sulfa (Sulfonamide Allergy Intermediate Hives Verified 02/02/19 15:42 Antibiotics) Home Medications Medication Instructions Recorded Confirmed Last Taken Type Ibuprofen [Motrin] 800 mg PO Q8HR PRN #30 tablet 01/03/19 02/03/19 Unknown Rx oxyCODONE /ACETAMINOPHEN [Percocet 1 tab PO Q4HR #20 tab 01/03/19 02/03/19 Unk nown Rx 5/325] Active Meds: Active Medications Acetaminophen/Hydrocodone Bitart ([place] 5/325) 1 each PO Q6H PRN PRN Reason: Pain, Moderate (4-6) Last Admin: 02/03/19 15:26 Dose: 1 each Documented by: Lactated Ringer's (Lactated Ringers) 1,000 mls @ 125 mls/hr IV DIRECT DEBBIE Last Admin: 02/03/19 13:17 Dose: 125 mls/hr Documented by: Clindamycin HCl (Cleocin 900 Mg/50 Ml) 900 mg in 50 mls @ 100 mls/hr IV Q8H DEBBIE; Protocol Last Admin: 02/03/19 11:03 Dose: 100 mls/hr Documented by: Gentamicin Sulfate/Sodium Chloride (Gentamicin/Ns 80 Mg/100 Ml) 100 mls @ 200 mls/hr IV Q8H DEBBIE Last Admin: 02/03/19 12:28 Dose: 200 mls/hr Documented by: Ampicillin Sodium (Ampicillin/Ns 2 Gm/100 Ml) 2 gm in 100 mls @ 100 mls/hr IV Q6HR DEBBIE; Protocol Last Admin: 02/03/19 13:16 Dose: 100 mls/hr Documented by: Ondansetron HCl (Zofran) 4 mg IV Q8H PRN PRN Reason: Nausea Last Admin: 02/03/19 08:44 Dose: 4 mg Documented by: Physical Examination - Physical Exam Narrative exam: General appearance: Alert in NAD Eyes: anicteric sclerae, moist conjunctivae; no lid-lag; PERRLA HENT: Atraumatic; oropharynx clear with moist mucous membranes and no mucosal ulcerations/no oral thrush; normal hard and soft palate. Normal external ears. Neck: Trachea midline; supple, no thyromegaly or lymphadenopathy Lungs: CTA, with normal respiratory effort and no intercostal retractions CV: RRR no murmur Abdomen: Soft, non-tender; no masses or hepatosplenomegaly + surgical scar well healed, +Left CV tenderness Extremities: no edema, cyanosis Skin: Normal temperature, turgor and texture; no rash, ulcers or subcutaneous nodules Psych: Appropriate affect, alert and oriented to person, place and time. Neuro: alert and oriented x 3. Moving all extermities - Constitutional Vitals: Vital Signs Temp Pulse Resp BP Pulse Ox 98.3 F 95 H 36 H 110/47 99 02/03/19 12:16 02/03/19 12:16 02/03/19 12:16 02/03/19 12:16 02/03/19 12:16 Temperature -Last 24 Hours Temperature 98.3 F Temperature 100.7 F Temperature 99.3 F Temperature 99.3 F Temperature 98.1 F Temperature 98.5 F Temperature 99.5 F Temperature 99.7 F Temperature 99.7 F Temperature 98.8 F Results - Labs CBC & Chem 7: 02/03/19 09:18 02/03/19 09:18 Labs: Abnormal lab results 02/02/19 02/02/19 02/02/19 Range/Units 15:55 15:55 15:55 WBC 15.3 H (4.5-11.0) K/mm3 RBC (3.65-5.03) M/mm3 Lymph % (Auto) 5.6 L (13.4-35.0) % Rich % (Auto) 9.3 H (0.0-7.3) % Lymph # 0.9 L (1.2-5.4) K/mm3 Rich # 1.4 H (0.0-0.8) K/mm3 Seg Neutrophils % 84.8 H (40.0-70.0) % Seg Neutrophils # 13.0 H (1.8-7.7) K/mm3 VBG pH 7.430 H (7.320-7.420) Potassium 3.5 L (3.6-5.0) mmol/L Chloride (98-107) mmol/L Carbon Dioxide 21 L (22-30) mmol/L BUN 18 H (7-17) mg/dL Glucose 107 H (65-100) mg/dL Lactic Acid (0.7-2.0) mmol/L AST (5-40) units/L ALT (7-56) units/L Total Protein (6.3-8.2) g/dL Albumin (3.9-5) g/dL Urine WBC (Auto) (0.0-6.0) /HPF 02/02/19 02/02/19 02/03/19 Range/Units 16:08 19:24 09:18 WBC 16.8 H (4.5-11.0) K/mm3 RBC 3.58 L (3.65-5.03) M/mm3 Lymph % (Auto) 6.0 L (13.4-35.0) % Rich % (Auto) (0.0-7.3) % Lymph # 1.0 L (1.2-5.4) K/mm3 Rich # 1.0 H (0.0-0.8) K/mm3 Seg Neutrophils % 87.4 H (40.0-70.0) % Seg Neutrophils # 14.7 H (1.8-7.7) K/mm3 VBG pH (7.320-7.420) Potassium (3.6-5.0) mmol/L Chloride (98-107) mmol/L Carbon Dioxide (22-30) mmol/L BUN (7-17) mg/dL Glucose (65-100) mg/dL Lactic Acid 0.60 L (0.7-2.0) mmol/L AST (5-40) units/L ALT (7-56) units/L Total Protein (6.3-8.2) g/dL Albumin (3.9-5) g/dL Urine WBC (Auto) > 182.0 H (0.0-6.0) /HPF 02/03/19 Range/Units 09:18 WBC (4.5-11.0) K/mm3 RBC (3.65-5.03) M/mm3 Lymph % (Auto) (13.4-35.0) % Rich % (Auto) (0.0-7.3) % Lymph # (1.2-5.4) K/mm3 Rich # (0.0-0.8) K/mm3 Seg Neutrophils % (40.0-70.0) % Seg Neutrophils # (1.8-7.7) K/mm3 VBG pH (7.320-7.420) Potassium 3.5 L (3.6-5.0) mmol/L Chloride 107.1 H (98-107) mmol/L Carbon Dioxide (22-30) mmol/L BUN (7-17) mg/dL Glucose 122 H (65-100) mg/dL Lactic Acid (0.7-2.0) mmol/L AST 95 H (5-40) units/L ALT 92 H (7-56) units/L Total Protein 6.1 L (6.3-8.2) g/dL Albumin 3.4 L (3.9-5) g/dL Urine WBC (Auto) (0.0-6.0) /HPF Assessment and Plan Cultures: Blood cultures 02/02/2019 no growth today. Urine culture 02/02/2019 100K GNRs. Assessment: 23 y/o female with recent on 01/02/2019 admitted on 02/02/2019 due to a week history of bilateral flank pain, left more than right associated with urinary hesitation and frequency: 1) Severe Sepsis: Present on admission, manifested by fever, tachycardia, leukocytosis. Etiology most likely UTI. 2) UTI: likely E coli UTI. She had a previous UTI when she was 14 y/o. UA with 182 wbc, large LE. Blood cultures 02/02/2019 no growth today. Urine culture 02/02/[address] abdomen/pelvis shows slight bilateral hydronephrosis, small calcified gallstone and slight free fluid in the endometrial cavity. 3) Elevated LFTs ? from sepsis Recommendations: - follow-up blood cultures, urine culture - stop clindamycin, gentamicin and ampicillin - start ceftriaxone 2 gm IV q day - renal US - monitor LFTs Will follow. Staci Briceno MD Infectious Diseases [facility] ([facility] M [phone]
--- NOTE | 2019-02-03 16:35 | Consultation ---
History of Present Illness Consult date: 02/03/19 Chief complaint: fever - History of present illness History of present illness: 23 yo F s/p csection 1 month ago presents with 1 day hx of fever up to 102.5. She also c/o lower abdominal pain radiating to both lower quadrants and left flank and mid back pain. She is having nausea and vomiting clear fluid from time to time. She has been having BMs. She c/o increased pressure when she urinates. She ate a regular diet today and states she did ok. She has never had pain or symptoms like this before. No upper abdominal pain. No association of pain with food. Past History Past Medical History: other (latent syphilis) Past Surgical History: Social history: lives with family, full code. denies: smoking, alcohol abuse, prescription drug abuse, IV drug use Family history: no significant family history Medications and Allergies Allergies Allergy/AdvReac Type Severity Reaction Status Date / Time Sulfa (Sulfonamide Allergy Intermediate Hives Verified 02/02/19 15:42 Antibiotics) Home Medications Medication Instructions Recorded Confirmed Last Taken Type Ibuprofen [Motrin] 800 mg PO Q8HR PRN #30 tablet 01/03/19 02/03/19 Unknown Rx oxyCODONE /ACETAMINOPHEN [Percocet 1 tab PO Q4HR #20 tab 01/03/19 02/03/19 Unknown Rx 5/325] Active Meds: Active Medications Acetaminophen/Hydrocodone Bitart ([place] 5/325) 1 each PO Q6H PRN PRN Reason: Pain, Moderate (4-6) Last Admin: 02/03/19 15:26 Dose: 1 each Documented by: Lactated Ringer's (Lactated Ringers) 1,000 mls @ 125 mls/hr IV DIRECT DEBBIE Last Admin: 02/03/19 13:17 Dose: 125 mls/hr Documented by: Ceftriaxone Sodium (Rocephin/Ns 2 Gm/100 Ml) 2 gm in 100 mls @ 200 mls/hr IV Q24H DEBBIE; Protocol Ondansetron HCl (Zofran) 4 mg IV Q8H PRN PRN Reason: Nausea Last Admin: 02/03/19 08:44 Dose: 4 mg Documented by: Review of Systems All systems: negative (10 pt ROS performed and negative except for that listed in HPI) Exam Vital Signs Temp Pulse Resp BP Pulse Ox 100.1 F H 137 H 18 118/77 96 02/02/19 15:42 02/02/19 15:42 02/02/19 15:42 02/02/19 15:42 02/02/19 15:42 Narrative exam: Gen: AAOx3. NAD ENT: no scleral icterus or conjunctival pallor CV: s1, S2+ resp; even and unlabored Abd: soft, ND, mild discomfort on palpation of bilateral lower quadrants and especially with palpation of suprapubic region. Well healed lower abdominal scar. No r/r/g Ext: no c/c/e Results - Labs 02/03/19 09:18 02/03/19 09:18 Abnormal lab results 02/02/19 02/02/19 02/02/19 Range/Units 15:55 15:55 16:08 WBC (4.5-11.0) K/mm3 RBC (3.65-5.03) M/mm3 Lymph % (Auto) (13.4-35.0) % Lymph # (1.2-5.4) K/mm3 Hughes # (0.0-0.8) K/mm3 Seg Neutrophils % (40.0-70.0) % Seg Neutrophils # (1.8-7.7) K/mm3 VBG pH 7.430 H (7.320-7.420) Potassium 3.5 L (3.6-5.0) mmol/L Chloride (98-107) mmol/L Carbon Dioxide 21 L (22-30) mmol/L BUN 18 H (7-17) mg/dL Glucose 107 H (65-100) mg/dL Lactic Acid (0.7-2.0) mmol/L AST (5-40) units/L ALT (7-56) units/L Total Protein (6.3-8.2) g/dL Albumin (3.9-5) g/dL Urine WBC (Auto) > 182.0 H (0.0-6.0) /HPF 02/02/19 02/03/19 02/03/19 Range/Units 19:24 09:18 09:18 WBC 16.8 H (4.5-11.0) K/mm3 RBC 3.58 L (3.65-5.03) M/mm3 Lymph % (Auto) 6.0 L (13.4-35.0) % Lymph # 1.0 L (1.2-5.4) K/mm3 Hughes # 1.0 H (0.0-0.8) K/mm3 Seg Neutrophils % 87.4 H (40.0-70.0) % Seg Neutrophils # 14.7 H (1.8-7.7) K/mm3 VBG pH (7.320-7.420) Potassium 3.5 L (3.6-5.0) mmol/L Chloride 107.1 H (98-107) mmol/L Carbon Dioxide (22-30) mmol/L BUN (7-17) mg/dL Glucose 122 H (65-100) mg/dL Lactic Acid 0.60 L (0.7-2.0) mmol/L AST 95 H (5-40) units/L ALT 92 H (7-56) units/L Total Protein 6.1 L (6.3-8.2) g/dL Albumin 3.4 L (3.9-5) g/dL Urine WBC (Auto) (0.0-6.0) /HPF Diabetes panel 02/02/19 02/03/19 Range/Units 15:55 09:18 Sodium 140 141 (137-145) mmol/L Potassium 3.5 L 3.5 L (3.6-5.0) mmol/L Chloride 103.5 107.1 H (98-107) mmol/L Carbon Dioxide 21 L 22 (22-30) mmol/L BUN 18 H 9 (7-17) mg/dL Creatinine 0.8 0.8 (0.7-1.2) mg/dL Glucose 107 H 122 H (65-100) mg/dL Calcium 9.9 8.9 (8.4-10.2) mg/dL AST 19 95 H (5-40) units/L ALT 17 92 H (7-56) units/L Alkaline Phosphatase 94 99 (35-129) units/L Total Protein 7.5 6.1 L (6.3-8.2) g/dL Albumin 4.2 3.4 L (3.9-5) g/dL Calcium panel 02/02/19 02/03/19 Range/Units 15:55 09:18 Calcium 9.9 8.9 (8.4-10.2) mg/dL Albumin 4.2 3.4 L (3.9-5) g/dL Pituitary panel 02/02/19 02/03/19 Range/Units 15:55 09:18 Sodium 140 141 (137-145) mmol/L Potassium 3.5 L 3.5 L (3.6-5.0) mmol/L Chloride 103.5 107.1 H (98-107) mmol/L Carbon Dioxide 21 L 22 (22-30) mmol/L BUN 18 H 9 (7-17) mg/dL Creatinine 0.8 0.8 (0.7-1.2) mg/dL Glucose 107 H 122 H (65-100) mg/dL Calcium 9.9 8.9 (8.4-10.2) mg/dL Adrenal panel 02/02/19 02/03/19 Range/Units 15:55 09:18 Sodium 140 141 (137-145) mmol/L Potassium 3.5 L 3.5 L (3.6-5.0) mmol/L Chloride 103.5 107.1 H (98-107) mmol/L Carbon Dioxide 21 L 22 (22-30) mmol/L BUN 18 H 9 (7-17) mg/dL Creatinine 0.8 0.8 (0.7-1.2) mg/dL Glucose 107 H 122 H (65-100) mg/dL Calcium 9.9 8.9 (8.4-10.2) mg/dL Total Bilirubin 0.30 0.40 (0.1-1.2) mg/dL AST 19 95 H (5-40) units/L ALT 17 92 H (7-56) units/L Alkaline Phosphatase 94 99 (35-129) units/L Total Protein 7.5 6.1 L (6.3-8.2) g/dL Albumin 4.2 3.4 L (3.9-5) g/dL - Imaging CT scan - abdomen: report reviewed, image reviewed CT scan - pelvis: report reviewed, image reviewed Assessment and Plan 23 yo F with 1. abdominal pain 2. gallstones 3. UTI/?pyelo 4. fevers Plan: 1. Pt on reg diet 2. IVF 3. IV abx per ID 4. symptoms likely related to UTI however will order U/S abd for completion of gallstone w/u. Thank you, please call with questions.
[2019-02-03] MEDS: ROCEPHIN/NS 2 GM/100 ML 2 GM/100 ML BAG IV SCH (18:43)
--- NOTE | 2019-02-03 19:58 | Ultrasound Report ---
PROCEDURE: US ABDOMEN LIMITED TECHNIQUE: Ultrasound abdomen HISTORY: gallstones, r/o cholecystitis COMPARISONS: FINDINGS: The gallbladder is contracted. Limited evaluation. No definitive shadowing foci observed. Gallbladder wall appears thickened however this could be due to contracted state 3.8 mm. Common duct is 0.26 cm Right kidney 13.2 x 7.4 x 6.2 cm. Cortical thickness 1.4 cm no evidence for hydronephrosis IMPRESSION: Contracted gallbladder Limited evaluation. No definitive sonographic evidence for acute cholecystitis at this time. Otherwise negative study This document is electronically signed by Oliver Rangel MD., February 03 2019 07:56:47 PM ET
--- NOTE | 2019-02-03 20:02 | Ultrasound Report ---
PROCEDURE: US RENAL BILAT TECHNIQUE: Renal ultrasound HISTORY: eval for pyelonephritis/stones COMPARISONS: FINDINGS: Right kidney measures 13.0 x 6.6 x 6.9 cm. Normal renal echogenicity. Cortical thickness 1.6 cm. No e vidence for hydronephrosis Left kidney measures 13.7 x 4.8 x 5.0 cm. Mild fullness of the renal collecting system no gross hydro nephrosis. Normal renal echogenicity. No evidence for nephrolithiasis. Urinary bladder is unremarkable. IMPRESSION: Mild fullness of the left renal collecting system without gross hydronephrosis. Otherwise negative study. This document is electronically signed by Oliver Rangel MD., February 03 2019 08:00:11 PM ET
[2019-02-04] MEDS: LACTATED RINGERS 1,000 ML IV SCH ×3 (01:58→19:45)
[2019-02-04] MEDS: NORCO 5/325 PO PRN ×2 (02:51→09:28)
--- NOTE | 2019-02-04 08:21 | Progress Note ---
Assessment and Plan mild r sided tendernedd no more r hydro on us min dil L suspect 30 days post delivery 40.5 week gestation no stones on ct but gallstone will watch conservatively hydro basically gone Subjective Date of service: 02/04/19 Principal diagnosis: Pyrexia of unknown origin. Objective - Constitutional Vitals: Vital Signs - 12hr 02/03/19 02/04/19 02/04/19 20:44 00:36 05:22 Temperature 102.0 F H 98.0 F 99.4 F Pulse Rate 99 H 81 89 Respiratory 18 20 20 Rate Blood Pressure 93/48 103/53 106/61 Blood Pressure [Left] O2 Sat by Pulse 99 97 100 Oximetry 02/04/19 07:41 Temperature 100.4 F H Pulse Rate 95 H Respiratory 18 Rate Blood Pressure Blood Pressure 103/47 [Left] O2 Sat by Pulse Oximetry General appearance: Present: no acute distress - Neck Neck: supple - Respiratory Respiratory effort: normal - Gastrointestinal General gastrointestinal: Present: soft, tender - Labs CBC & Chem 7: 02/03/19 09:18 02/03/19 09:18 Labs: Abnormal lab results 02/03/19 02/03/19 Range/Units 09:18 09:18 WBC 16.8 H (4.5-11.0) K/mm3 RBC 3.58 L (3.65-5.03) M/mm3 Lymph % (Auto) 6.0 L (13.4-35.0) % Lymph # 1.0 L (1.2-5.4) K/mm3 [place] # 1.0 H (0.0-0.8) K/mm3 Seg Neutrophils % 87.4 H (40.0-70.0) % Seg Neutrophils # 14.7 H (1.8-7.7) K/mm3 Potassium 3.5 L (3.6-5.0) mmol/L Chloride 107.1 H (98-107) mmol/L Glucose 122 H (65-100) mg/dL AST 95 H (5-40) units/L ALT 92 H (7-56) units/L Total Protein 6.1 L (6.3-8.2) g/dL Albumin 3.4 L (3.9-5) g/dL Medications & Allergies - Medications Allergies/Adverse Reactions: Allergies Sulfa (Sulfonamide Antibiotics) Allergy (Intermediate, Verified 06/15/19 15:42) Hives Home Medications: Home Medications Medication Instructions Recorded Confirmed Last Taken Type Ibuprofen [Motrin] 800 mg PO Q8HR PRN #30 tablet 01/03/19 02/03/19 Unknown Rx oxyCODONE /ACETAMINOPHEN [Percocet 1 tab PO Q4HR #20 tab 01/03/19 02/03/19 Unknown Rx 5/325] Active Medications: Generic Name Dose Route Start Last Admin Trade Name Freq PRN Reason Stop Dose Admin Acetaminophen/Hydrocodone Bitart 1 each 02/03/19 09:00 02/04/19 02:51 [place] 5/325 PO 1 each Q6H PRN Administration Pain, Moderate (4-6) Lactated Ringer's 1,000 mls @ 125 mls/hr 02/02/19 23:00 02/04/19 01:58 Lactated Ringers IV 125 mls/hr DIRECT DEBBIE Administration Ceftriaxone Sodium 2 gm in 100 mls @ 200 mls/hr 02/03/19 17:00 02/03/19 18:43 Rocephin/Ns 2 Gm/100 Ml IV 200 mls/hr Q24H DEBBIE Administration Protocol Ondansetron HCl 4 mg 02/03/19 08:36 02/03/19 08:44 Zofran IV 4 mg Q8H PRN Administration Nausea
--- NOTE | 2019-02-04 08:57 | Event Note ---
Date: 02/04/19 I saw patient this am. She was alert and in no distress but complained of pain in both groins as well as small vaginal discharge. With her RN, Charmaine Dixon, a pelvic exam was done. There was scant yellowish discharge seen on the glove. Both adnexa as well as the uterus were very tender. IMPRESSION: PID. PLAN: I will discuss the antibiotic rx with infectious disease specialist quickly and call in changes.
--- NOTE | 2019-02-04 09:30 | Consultation ---
HISTORY: The patient is a 23-year-old woman who had her first baby possibly was over 40 weeks and she presented with fevers and chills. She had a CT scan, which showed a contracted bladder and gallstone and some mild hydronephrosis bilaterally. Her creatinine is normal. She is making good urine. She has had no previous urological history. PAST MEDICAL HISTORY: (?) latent syphilis. PAST SURGICAL HISTORY: . FAMILY HISTORY: Noncontributory. SOCIAL HISTORY: Negative. ALLERGIES: SULFA. REVIEW OF SYSTEMS: Dull abdominal pain, fevers and chills. PHYSICAL EXAMINATION: On exam, she had a white count and some pyuria with E. coli in the urine and negative blood cultures. IMPRESSION AND PLAN: Resolving hydronephrosis, urinary tract infection, gallstone with a contracted gallbladder. The followup ultrasound showed minimal if any dilatation on the left side. Right side is resolved. I would recommend treating a course of antibiotics and surgical evaluation, possible HIDA scan. JOB# [id number] PATRICIA/TUAN
[2019-02-04] MEDS ORDERED: ZITHROMAX 500 MG in NACL 0.9% 250ML 250 ML IV SCH (10:00)
[2019-02-04] MEDS ORDERED: FLAGYL 500 MG/100 ML 500 MG/100 ML BAG IV SCH (10:00)
--- NOTE | 2019-02-04 10:07 | Event Note ---
Date: 02/04/[address] Seth, patient found to have a scant yellowish discharge and both adnexa as well as the uterus were very tender on pelvic exam. There is suspicion for PID. Urine culture shows E coli pansensitive. I will add metronidazole 500 mg Iv TID and azithromycin 500 mg IV x 1 then 250 mg Iv qday for now to cover presumed PID in a patient who is breast feeding.
--- NOTE | 2019-02-04 10:33 | Progress Note ---
Assessment and Plan Cultures: Blood cultures 02/02/2019 no growth to date Urine culture 02/02/2019 E.Coli, erwin suceptible Assessment: 23 y/o female with recent on 01/02/2019 admitted on 02/02/2019 due to a week history of bilateral flank pain, left more than right associated with urinary hesitation and frequency: 1) Severe Sepsis: Continuing. Noted fever of 102 on 02/03. still leukocytosis. Etiology most likely UTI. 2) UTI: She had a previous UTI when she was 14 y/o. UA with 182 wbc, large LE. Blood cultures 02/02/2019 no growth to date. Urine culture 02/02/2019 E.Coli, erwin susceptible. CT abdomen/pelvis shows slight bilateral hydronephrosis, small calcified gallstone and slight free fluid in the endometrial cavity. Renal U/S shows Mild fullness of the left renal collecting system without gross hydronephrosis. Otherwise negative study 3) Elevated LFTs ? from sepsis 4) Presumed PID vs post endometritis: scant yellowish discharge, both adnexa and uterine tenderness on pelvic exam.. Will add Flagyl and Azithromycin. Order GC and Chlamydia. Recommendations: - follow-up blood cultures - continue ceftriaxone 2 gm IV q day, D2 -Start Azithromycin 500mg IV every 24 hours -Start Flagyl 500mg IV every 8 hours - GC and Chlamydia ordered [facility] M: [phone] O:[phone] Subjective Date of service: 02/04/19 Principal diagnosis: Pyrexia of unknown origin. Interval history: Patient seen and examined. Abdominal tenderness improving. +fevers. Objective - Exam Narrative Exam: General appearance: Awake. Alert. No acute distress. Eyes: anicteric sclerae, moist conjunctivae; no lid-lag; PERRLA HENT: Atraumatic; oropharynx clear with moist mucous membranes and no mucosal ulcerations/no oral thrush; normal hard and soft palate. Normal external ears. Neck: Trachea midline; supple, no thyromegaly or lymphadenopathy Lungs: CTA, with normal respiratory effort and no intercostal retractions CV: RRR no murmur Abdomen: Soft,tender; no masses or hepatosplenomegaly + surgical scar well healed, +Left CV tenderness Extremities: no edema, cyanosis Skin: Normal temperature, turgor and texture; no rash, ulcers or subcutaneous nodules Psych: Appropriate affect, alert and oriented to person, place and time. Neuro: alert and oriented x 3. Moving all extermities - Constitutional Vitals: Vital Signs Temp Pulse Resp BP Pulse Ox 100.4 F H 95 H 18 103/47 100 02/04/19 07:41 02/04/19 07:41 02/04/19 09:28 02/04/19 07:41 02/04/19 05:22 Temperature -Last 24 Hours Temperature 100.4 F Temperature 99.4 F Temperature 98.0 F Temperature 102.0 F Temperature 98.3 F - Labs CBC & Chem 7: 02/04/19 11:02 02/03/19 09:18
--- NOTE | 2019-02-04 10:38 | Progress Note ---
Assessment and Plan - Patient Problems (1) Pyelonephritis Current Visit: Yes Status: Acute (2) Sepsis Current Visit: Yes Status: Acute Plan to address problem: ID consult was done. Dr. Rodriguez saw the patient. She recommended to continue current antibiotics regimen. Blood culture pending. (3) Elevated liver enzymes Current Visit: Yes Status: Acute Plan to address problem: Hepatitis panel ordered. (4) Leukocytosis Current Visit: Yes Status: Acute Plan to address problem: WBC is trending down. (5) Thickening of wall of gallbladder Current Visit: Yes Status: Acute Plan to address problem: Will repeat RUQ sono in AM after patient is NPO. NPO after midnight. Subjective - Subjective Date of service: 02/04/19 Principal diagnosis: Pyrexia of unknown origin. Interval history: Patient is a 23 year old who was admitted 2 days ago with fever of 102.5F, left lower abdominal pain radiating to her lower back, urinary symptoms, nausea, vomiting. WBC was 15.3 on admission and went up to 16.[address] scan showed mild left hydronephrosis and no stones. Urine culture grew E.Coli. ID consult was done. RUQ sonogram showed thickened gallbladder wall with no sludge or stones. Surgical consult was done and no intervention was recommended. Blood culture showed no growth after 48 hrs. She was put on IV rocephin 2 gm QD, IV zithromax 250 mg QD, and flagyl 500 mg IV TID. Her last fever 102F was last night. Today, she is feeling better and is tolerating regular diet. She only has mild pain in the left lower abdomen. She has a history of latent syphillis. Yesterday, Her LFTs were elevated. Objective - Vital Signs Latest vital signs: Vital Signs Temp Pulse Pulse Resp BP BP Pulse Ox 02/04/19 09:28 18 02/04/19 07:41 100.4 F H 95 H 18 103/47 02/04/19 05:22 99.4 F 89 20 106/61 100 02/04/19 00:36 98.0 F 81 20 103/53 97 02/03/19 20:44 102.0 F H 99 H 18 93/48 99 02/03/19 20:00 84 16 100 02/03/19 12:16 98.3 F 95 H 36 H 110/47 99 Intake and Output 02/03/19 02/04/19 02/04/19 23:59 07:59 15:59 Intake Total 1000 600 943.75 Output Total 800 Balance 1000 -200 943.75 Intake: IV 1000 943.75 Lactated Ringers 1,000 ml 1000 943.75 @ 125 mls/hr IV DIRECT DEBBIE Rx#:[id number] Oral 600 Output: Urine 800 Void 800 Other: Total, Intake Amount 360 Total, Output Amount 800 Voiding Method Toilet - Exam Cardiovascular: Present: Normal S1, Normal S2 Lungs: Present: Clear to auscultation Vulva: both: normal Deep Tendon Reflex Grade: Normal +2
[2019-02-04 11:25] LABS: Basophils % (Auto) 0.2 % (0.0-1.8); Eosinophils % (Auto) 0.2 % (0.0-4.3); Hematocrit 28.8 % (30.3-42.9); Hemoglobin 9.7 gm/dl (10.1-14.3); Lymphocytes # (Auto) 1.8 K/mm3 (1.2-5.4); Lymphocytes % (Auto) 14.1 % (13.4-35.0); Mean Corpuscular HGB Conc 34 % (30-34); Mean Corpuscular Volume 85 fl (79-97); Monocytes # (Auto) 1.3 K/mm3 (0.0-0.8); Monocytes % (Auto) 9.9 % (0.0-7.3); Platelet Count 319 K/mm3 (140-440); Red Blood Count 3.41 M/mm3 (3.65-5.03); Red Cell Distribution Width 13.5 % (13.2-15.2)
--- NOTE | 2019-02-04 15:43 | Progress Note ---
Assessment and Plan Echo reviewed - EF 55-60%, pseudonormalization, mild MR, normal bubble study. Currently stable cardiac status. No apparent cardiac source for infection and no significant valvular abnormalities visualized on echo. Nothing further to add from cardiac perspective at this time. Will sign off. Recommend pt follow up in our office with Dr. Valdez within 1-2 weeks of hospital discharge ([phone]). The patient has been seen in conjunction with Dr. Carlie Christianson who agrees with the assessment and plan of care. - Patient Problems (1) Murmur, cardiac Current Visit: Yes Status: Acute (2) Sepsis Current Visit: Yes Status: Acute Qualifiers: Sepsis type: sepsis due to unspecified organism Qualified Code(s): A41.9 - Sepsis, unspecified organism (3) UTI (urinary tract infection) Current Visit: Yes Status: Acute (4) Anemia Current Visit: Yes Status: Acute Subjective Date of service: 02/04/19 Principal diagnosis: UTI Interval history: pt resting in bed, no current complaints. Objective Last Vital Signs Temp 99.9 F H 02/04/19 12:11 Pulse 85 02/04/19 12:11 Resp 18 02/04/19 12:11 BP 101/61 02/04/19 12:11 Pulse Ox 100 02/04/19 05:22 - Physical Examination General: No Apparent Distress HEENT: Positive: PERRL Neck: Positive: neck supple Cardiac: Positive: Reg Rate and Rhythm, S1/S2 Lungs: Positive: Decreased Breath Sounds Neuro: Positive: Grossly Intact Abdomen: Positive: Soft Skin: Positive: Clear Musculoskeletal: Normal Range of Motion Extremities: Present: normal - Labs and Meds CBC 02/04/19 Range/Units 11:02 WBC 13.0 H (4.5-11.0) K/mm3 RBC 3.41 L (3.65-5.03) M/mm3 Hgb 9.7 L (10.1-14.3) gm/dl Hct 28.8 L (30.3-42.9) % Plt Count 319 (140-440) K/mm3 Lymph # 1.8 (1.2-5.4) K/mm3 [place] # 1.3 H (0.0-0.8) K/mm3 Eos # 0.0 (0.0-0.4) K/mm3 Baso # 0.0 (0.0-0.1) K/mm3 - Imaging and Cardiology Echo: report reviewed
[2019-02-04 16:30] LABS: Alanine Aminotransferase 54 units/L (7-56)
[2019-02-04] MEDS: VALTREX PO SCH (17:50)
--- NOTE | 2019-02-04 18:30 | Ultrasound Report ---
PROCEDURE: US PELVIC COMPLETE TECHNIQUE: Ultrasound of the pelvis using transabdominal and transvaginal imaging HISTORY: . Fever and PID . Right lower quadrant and left lower quadrant pelvic pain. Prior 01/02/2019 COMPARISONS: CT A/P 02/02/2019 . FINDINGS: Uterus: Uterus is mildly enlarged in size and normal and homogeneous in echogenicity without focal f ibroid formation. The uterus measures 8.9 x 4.3 x 8.4 cm in size. In the lower anterior aspect of th e uterus, there is a 1.6 x 1.3 x 4.0 cm complex avascular cystic area. In this location, this is typi tima of the incision site, likely residual hematoma. Endometrial stripe: Normal and uniform in thickness measuring 10.1 mm. No fluid in the endometrial c anal is seen. No blood flow along the endometrial stripe is noted. Ovaries: Both ovaries appear normal in size and echogenicity with normal blood flow bilaterally. Th e right ovary measures 2.4 x 1.9 x 4.0 cm and the left ovary measures 4.1 x 1.6 x 2.3 cm in size. Other: There is no evidence for solid adnexal mass seen but there is moderate free fluid in the cul- de-sac and anterior to the uterus. This is likely related to the recent surgery and is unchanged comp ared to prior CT. IMPRESSION: 1. Complex avascular cystic region in the anterior aspect of the lower uterine segment. This is in a typical location of the incision site and probably represents residual unresolved hematoma or seroma within the myometrium 2. Moderate fluid anterior and posterior to the uterus which is also likely related to the recent nguyễn drew. Similar findings have been seen on recent CT. This document is electronically signed by Elisa Sanz MD., February 04 2019 06:28:41 PM ET
[2019-02-04] MEDS: ROCEPHIN/NS 2 GM/100 ML 2 GM/100 ML BAG IV SCH (19:36)
[2019-02-04] MEDS: FLAGYL 500 MG/100 ML 500 MG/100 ML BAG IV SCH (20:29)
--- NOTE | 2019-02-04 21:43 | Ultrasound Report ---
PROCEDURE: US TRANSVAGINAL TECHNIQUE: Real-time transvaginal sonography in multiple planes of the pelvis was performed with jasper ge documentation. HISTORY: Lower pelvic pain COMPARISONS: None . FINDINGS: UTERUS Size: 8.9 x 4.3 x 6.2 cm. Endometrial thickness: 8 mm. Orientation: anteverted and retroflexed. Cervix: Normal. An irregular ill-defined hypoechoic lesion is noted involving the anterior wall of lower uterine segm ent measuring 1.6 x 1.3 x 4 cm. It appears to involve the entire myometrial thickness. There is no ev idence of any hypervascularity RIGHT Ovary: 2.4 x 1.9 x 4 cm. Appearance: Normal. LEFT Ovary: 4.1 x 1.6 x 2.3 cm. Appearance: Normal. Pelvic fluid: Mild degree free fluid is noted in the pelvic cavity. Other: None. IMPRESSION: Irregular full-thickness anterior lower uterine segment lesion is consistent with cesarea n section scar.. This document is electronically signed by Aureliano Painting MD., February 04 2019 09:41:51 PM ET
[2019-02-05] MEDS: FLAGYL 500 MG/100 ML 500 MG/100 ML BAG IV SCH ×3 (04:15→19:54)
[2019-02-05] MEDS: LACTATED RINGERS 1,000 ML IV SCH (04:15)
[2019-02-05] MEDS: NORCO 5/325 PO PRN ×3 (05:11→19:55)
--- NOTE | 2019-02-05 09:04 | Ultrasound Report ---
ULTRASOUND ABDOMEN LIMITED: TECHNIQUE: Transabdominal ultrasound with color Doppler interrogation. HISTORY: Gallbladder pain. COMPARISON: 02/03/19. FINDINGS: LIVER: Normal. BILIARY SYSTEM: The gallbladder is adequately distended on today's exam. A few small gallstones are identified in the neck of the gallbladder measuring up to 4 mm. No evidence for wall thickening or surrounding fluid. The CBD measures 4.3 mm. PANCREAS: Normal. RIGHT KIDNEY: Normal. PROXIMAL AORTA: Normal. ASCITES: None. IMPRESSION: Cholelithiasis. No evidence for acute cholecystitis.
--- NOTE | 2019-02-05 09:20 | Progress Note ---
Assessment and Plan Assessment: Patient is showing improvements both physically and with her vital signs.Hepatitis panel tests results reviewed and noted. Plan: Continue current antibiotic rx. If afebrile x 24 hrs, may consider d/c home on antibiotics. - Patient Problems (1) PUO (pyrexia of unknown origin) Current Visit: Yes Status: Acute Subjective - Subjective Date of service: 02/05/19 Principal diagnosis: UTI Interval history: Patient is a 23 year old who was admitted 2 days ago with fever of 102.5F, left lower abdominal pain radiating to her lower back, urinary symptoms, nausea, vomiting. WBC was 15.3 on admission and went up to 16.[address] scan showed mild left hydronephrosis and no stones. Urine culture grew E.Coli. ID consult was done. RUQ sonogram showed thickened gallbladder wall with no sludge or stones. Surgical consult was done and no intervention was recommended. Blood culture showed no growth after 48 hrs. She was put on IV rocephin 2 gm QD, IV zithromax 250 mg QD, and flagyl 500 mg IV TID. Her temp this morning are 98.6. Patient reported feeling much better today compared with yesterday with decrease in her back and lower abd pains. Patient reports: appetite normal, ambulating normally Objective - Vital Signs Latest vital signs: Vital Signs Temp Pulse Resp BP BP Pulse Ox 02/05/19 07:17 98.6 F 69 16 97/58 02/05/19 05:56 98.8 F 02/05/19 05:11 20 02/05/19 04:59 100.1 F H 73 20 108/61 96 02/05/19 01:11 100.6 F H 84 18 114/65 97 02/04/19 20:26 101.9 F H 102 H 20 95/56 96 02/04/19 17:47 103.1 F H 101 H 18 105/48 02/04/19 12:11 99.9 F H 85 18 101/61 02/04/19 10:28 20 02/04/19 09:28 18 Intake and Output 02/04/19 02/05/19 02/05/19 23:59 07:59 15:59 Intake Total 1460 1360 Output Total 1850 1250 Balance -390 110 Intake: IV 1100 1000 FLAGYL 500 MG/100 ML 500 100 mg In 100 ml @ 100 mls/hr IV 0400,1200,2000 [facility] Rx #:[id number] Lactated Ringers 1,000 ml 1000 1000 @ 125 mls/hr IV [facility] Rx#:[id number] Oral 360 360 Output: Urine 1850 1250 Void 1850 1250 Other: Total, Intake Amount 240 360 Total, Output Amount 550 500 Voiding Method Toilet Toilet - Exam Breasts: Present: deferred (Breast feeding normally.) Cardiovascular: Present: Regular rate Lungs: Present: Clear to auscultation Abdomen: Present: normal appearance (lower abd a lot less tender than yesterday) Uterus: Present: other (Exam deferred.) Extremities: Present: normal Incision: Present: normal - Labs Labs: Abnormal lab results 02/04/19 Range/Units 11:02 WBC 13.0 H (4.5-11.0) K/mm3 RBC 3.41 L (3.65-5.03) M/mm3 Hgb 9.7 L (10.1-14.3) gm/dl Hct 28.8 L (30.3-42.9) % [place] % (Auto) 9.9 H (0.0-7.3) % [place] # 1.3 H (0.0-0.8) K/mm3 Seg Neutrophils % 75.6 H (40.0-70.0) % Seg Neutrophils # 9.8 H (1.8-7.7) K/mm3
[2019-02-05] MEDS: VALTREX PO SCH (09:45)
--- NOTE | 2019-02-05 10:36 | Progress Note ---
Assessment and Plan Cultures: Blood cultures 02/02/2019 no growth Urine culture 02/02/2019 E.Coli, erwin suceptible Assessment: 23 y/o female with recent on 01/02/2019 admitted on 02/02/2019 due to a week history of bilateral flank pain, left more than right associated with urinary hesitation and frequency: 1) Severe Sepsis: Leukocytois trending down. Low grade fevers continuing. Etiology most likely UTI. 2) UTI: She had a previous UTI when she was 14 y/o. UA with 182 wbc, large LE. Blood cultures 02/02/2019 no growth to date. Urine culture 02/02/2019 E.Coli, erwin susceptible. CT abdomen/pelvis shows slight bilateral hydronephrosis, small calcified gallstone and slight free fluid in the endometrial cavity. Renal U/S shows Mild fullness of the left renal collecting system without gross hydronephrosis. Otherwise negative study 3) Elevated LFTs ? from sepsis 4) Presumed PID vs post endometritis: scant yellowish discharge, both adnexa and uterine tenderness on pelvic exam. Continue azithromycin and flagyl. Recommendations: - continue ceftriaxone 2 gm IV q day, D3 -discontinue Azithromycin 500mg and start Azithronycin 250mg IV every 24 hours -continue Flagyl 500mg IV every 8 hours - follow-up GC and Chlamydia -CBC ordered for tomorrow If clinically better in 24 hours, Anticipate discharge on Ceftin 500 mg PO every 12 hours, Flagyl 500mg PO every 12 hours and Azithromycin 250 mg PO q day total 10 days ending February 13, 2019 [facility] M: [phone] O:[phone] Subjective Date of service: 02/05/19 Principal diagnosis: UTI Interval history: Patient seen and examined. Abdominal tenderness improving. Low grade fevers continuing. Objective - Exam Narrative Exam: General appearance: Awake. Alert. No acute distress. Eyes: anicteric sclerae, moist conjunctivae; no lid-lag; PERRLA HENT: Atraumatic; oropharynx clear with moist mucous membranes and no mucosal ulcerations/no oral thrush; normal hard and soft palate. Normal external ears. Neck: Trachea midline; supple, no thyromegaly or lymphadenopathy Lungs: CTA, with normal respiratory effort and no intercostal retractions CV: RRR no murmur Abdomen: Soft,tender; no masses or hepatosplenomegaly + surgical scar well healed, no CVA tenderness. Extremities: no edema, cyanosis Skin: Normal temperature, turgor and texture; no rash, ulcers or subcutaneous nodules Psych: Appropriate affect, alert and oriented to person, place and time. Neuro: alert and oriented x 3. Moving all extremities - Constitutional Vitals: Vital Signs Temp Pulse Resp BP Pulse Ox 98.6 F 69 16 97/58 96 02/05/19 07:17 02/05/19 07:17 02/05/19 07:17 02/05/19 07:17 02/05/19 04:59 Temperature -Last 24 Hours Temperature 98.6 F Temperature 98.8 F Temperature 100.1 F Temperature 100.6 F Temperature 101.9 F Temperature 103.1 F Temperature 99.9 F - Labs CBC & Chem 7: 02/04/19 11:02 02/03/19 09:18 Labs: Abnormal lab results 02/04/19 Range/Units 11:02 WBC 13.0 H (4.5-11.0) K/mm3 RBC 3.41 L (3.65-5.03) M/mm3 Hgb 9.7 L (10.1-14.3) gm/dl Hct 28.8 L (30.3-42.9) % [place] % (Auto) 9.9 H (0.0-7.3) % [place] # 1.3 H (0.0-0.8) K/mm3 Seg Neutrophils % 75.6 H (40.0-70.0) % Seg Neutrophils # 9.8 H (1.8-7.7) K/mm3
[2019-02-05] MEDS ORDERED: ZITHROMAX 250 MG in NACL 0.9% 250ML 250 ML IV SCH (12:00)
[2019-02-05] MEDS: ROCEPHIN/NS 2 GM/100 ML 2 GM/100 ML BAG IV SCH (18:36)
[2019-02-06 01:14] LABS: Basophils % (Auto) 0.5 % (0.0-1.8); Eosinophils # (Auto) 0.2 K/mm3 (0.0-0.4); Eosinophils % (Auto) 2.8 % (0.0-4.3); Hematocrit 26.9 % (30.3-42.9); Lymphocytes # (Auto) 2.4 K/mm3 (1.2-5.4); Lymphocytes % (Auto) 28.5 % (13.4-35.0); Mean Corpuscular HGB Conc 33 % (30-34); Mean Corpuscular Volume 85 fl (79-97); Monocytes # (Auto) 0.8 K/mm3 (0.0-0.8); Monocytes % (Auto) 9.7 % (0.0-7.3); Platelet Count 352 K/mm3 (140-440); Red Blood Count 3.16 M/mm3 (3.65-5.03); Red Cell Distribution Width 13.7 % (13.2-15.2)
[2019-02-06] MEDS: FLAGYL 500 MG/100 ML 500 MG/100 ML BAG IV SCH (04:47)
[2019-02-06] MEDS: ZOFRAN IV PRN (04:47)
[2019-02-06] MEDS: NORCO 5/325 PO PRN (05:12)
[2019-02-06] MEDS: LACTATED RINGERS 1,000 ML IV SCH (05:14)
--- NOTE | 2019-02-06 09:21 | Progress Note ---
Assessment and Plan Cultures: Blood cultures 02/02/2019 no growth Urine culture 02/02/2019 E.Coli, erwin suceptible Assessment: 23 y/o female with recent on 01/02/2019 admitted on 02/02/2019 due to a week history of bilateral flank pain, left more than right associated with urinary hesitation and frequency: 1) Severe Sepsis: Resolved. No fever in >24 hours. Etiology most likely UTI. 2) UTI: She had a previous UTI when she was 14 y/o. UA with 182 wbc, large LE. Blood cultures 02/02/2019 no growth to date. Urine culture 02/02/2019 E.Coli, erwin susceptible. CT abdomen/pelvis shows slight bilateral hydronephrosis, small calcified gallstone and slight free fluid in the endometrial cavity. Renal U/S shows Mild fullness of the left renal collecting system without gross hydronephrosis. Otherwise negative study 3) Elevated LFTs ? from sepsis 4) Presumed PID vs post endometritis: scant yellowish discharge, both adnexa and uterine tenderness on pelvic exam. Continue azithromycin and flagyl. Recommendations: - continue ceftriaxone 2 gm IV q day, D4 -continue Azithronycin 250mg IV every 24 hours, D3 -continue Flagyl 500mg IV every 8 hours,D4 - follow-up GC and Chlamydia -Clinically improved, Ok to discharge from ID standpoint on Ceftin 500 mg PO every 12 hours, Flagyl 500mg PO every 12 hours and Azithromycin 250 mg PO q day total 10 days ending February 13, 2019 . -f/u ID clinic in 3 weeks ( Appointment set up with [facility] leaf coverer) Pao Cruz NP [facility] M: [phone] O:[phone] Subjective Date of service: 02/06/19 Principal diagnosis: UTI Interval history: Patient seen and examined. Abdominal tenderness improving. No fevers. Objective - Exam Narrative Exam: General appearance: Awake. Alert. No acute distress. Eyes: anicteric sclerae, moist conjunctivae; no lid-lag; PERRLA HENT: Atraumatic; oropharynx clear with moist mucous membranes and no mucosal ulcerations/no oral thrush; normal hard and soft palate. Normal external ears. Neck: Trachea midline; supple, no thyromegaly or lymphadenopathy Lungs: CTA, with normal respiratory effort and no intercostal retractions CV: RRR no murmur Abdomen: Soft,tender; no masses or hepatosplenomegaly + surgical scar well healed, no CVA tenderness. Extremities: no edema, cyanosis Skin: Normal temperature, turgor and texture; no rash, ulcers or subcutaneous nodules Psych: Appropriate affect, alert and oriented to person, place and time. Neuro: alert and oriented x 3. Moving all extremities - Constitutional Vitals: Vital Signs Temp Pulse Resp BP Pulse Ox 97.8 F 51 L 16 98/33 98 02/06/19 07:42 02/06/19 07:42 02/06/19 07:42 02/06/19 07:42 02/06/19 07:42 Temperature -Last 24 Hours Temperature 97.8 F Temperature 99.0 F Temperature 98.5 F Temperature 99.9 F Temperature 98.2 F - Labs CBC & Chem 7: 02/06/19 00:59 02/03/19 09:18 Labs: Abnormal lab results 02/06/19 Range/Units 00:59 RBC 3.16 L (3.65-5.03) M/mm3 Hgb 9.0 L (10.1-14.3) gm/dl Hct 26.9 L (30.3-42.9) % [place] % (Auto) 9.7 H (0.0-7.3) %
[2019-02-06] MEDS: VALTREX PO SCH (10:43)
--- NOTE | 2019-02-06 11:58 | Progress Note ---
Assessment and Plan - Patient Problems (1) Pyelonephritis Current Visit: Yes Status: Acute (2) Sepsis Current Visit: Yes Status: Acute Plan to address problem: Patient is stable for discharge home today on PO antibiotics. (3) Elevated liver enzymes Current Visit: Yes Status: Acute Plan to address problem: Hepatitis panel was negative. LFTs are normal now. (4) Leukocytosis Current Visit: Yes Status: Acute Plan to address problem: WBC is normal. (5) Thickening of wall of gallbladder Current Visit: Yes Status: Acute Subjective - Subjective Date of service: 02/06/19 Principal diagnosis: Sepsis, endoemtritis, pyelonephritis Interval history: Patient is a 23 year old who was admitted with fever of 102.5F, left lower abdominal pain radiating to her lower back, urinary symptoms, nausea, vomi ting. WBC was 15.3 on admission and went up to 16.[address] scan showed mild left hydronephrosis and no stones. Urine culture grew E.Coli. Blood culture showed no growth after 5 days. ID consult was done. RUQ sonogram showed thickened gallbladder wall with no sludge or stones. Surgical consult was done and no intervention was recommended. She was put on IV rocephin 2 gm QD, IV zithromax 250 mg QD, and flagyl 500 mg IV TID. Today, she denies any pain and has been tolerating regular diet. She has a history of latent syphillis. She has been afebrile for over 24 hrs. ID saw her today and recommended discharging her home with flagyl, zithromax, and ceftin for 10 days. Objective - Vital Signs Latest vital signs: Vital Signs Temp Pulse Resp Resp BP BP Pulse Ox 02/06/19 07:42 97.8 F 51 L 16 98/33 98 02/06/19 01:20 99.0 F 80 18 103/60 99 02/05/19 21:25 98.5 F 64 18 98/54 99 02/05/19 20:00 18 02/05/19 19:55 18 02/05/19 15:55 99.9 F H 88 16 108/61 02/05/19 11:59 98.2 F 76 16 103/45 Intake and Output 02/05/19 02/06/19 02/06/19 23:59 07:59 15:59 Intake Total 980 Output Total 1400 400 500 Balance -420 -400 -500 Intake: IV 100 FLAGYL 500 MG/100 ML 500 100 mg In 100 ml @ 100 mls/hr IV 0400,1200,2000 [facility] Rx #:[id number] Oral 780 Intake, Free Water 100 Output: Urine 1400 400 500 Void 1400 400 500 Other: Total, Intake Amount 240 Total, Output Amount 300 400 500 Voiding Method Toilet # Voids Void 1 1 1 # Bowel Movements 1 - Exam Cardiovascular: Present: Normal S1, Normal S2 Lungs: Present: Clear to auscultation Vulva: both: normal Deep Tendon Reflex Grade: Normal +2 - Labs Labs: Abnormal lab results 02/06/19 Range/Units 00:59 RBC 3.16 L (3.65-5.03) M/mm3 Hgb 9.0 L (10.1-14.3) gm/dl Hct 26.9 L (30.3-42.9) % [place] % (Auto) 9.7 H (0.0-7.3) %
[2019-02-06 12:27] VITALS: BP 105/63
== END 2019-02-06 13:00 | disposition home or self-care (01) | DRG 776 ==
LOC: ED 15:40 → OB 17:49
PROVIDERS: ADMIT Obstetrics & Gynecology; ATTEND Obstetrics & Gynecology
DX: O85 Puerperal sepsis (principal); O86.12 Endometritis following delivery; O99.63 Diseases of the digestive system complicating the puerperium; O90.81 Anemia of the puerperium; O98.13 Syphilis complicating the puerperium; O99.43 Diseases of the circulatory system complicating the puerperium; N13.6 Pyonephrosis; B96.20 Unspecified Escherichia coli [E. coli] as the cause of diseases classified elsewhere; K80.20 Calculus of gallbladder without cholecystitis without obstruction; R65.20 Severe sepsis without septic shock; D64.9 Anemia, unspecified; R01.1 Cardiac murmur, unspecified; A53.9 Syphilis, unspecified; Z88.2 Allergy status to sulfonamides
CPT/HCPCS: 36415; 71045; 74177; 76705; 76770; 76830; 76856; 80053; 81001; 82140; 82550; 82805; 83735; 84450; 84460; 85025; 85610; 86705; 86706; 86708; 87040; 87076; 87086; 87186; 87517; 87591; 93005; 93010; 93306; G0378; J0290; J0456; J0696; J1580; J2405; J7030; J7040; J7050; J7120; Q9967